=== PATIENT | female | born 1945 | race Caucasian/White ===

== ENCOUNTER 2017-08-22 11:34 | Inpatient (IN) ==
[~2017-08-22 11:34] MED LIST: *HR* EPINEPHrine 1 MG/10 ML SYRINGE IVP ONE; *HR* Etomidate 20 MG/10 ML AMPUL IVP ONE; *HR* Rocuronium Bromide 100 MG/10 ML VIAL IVC ONE
[2017-08-22] MEDS ORDERED: 0.9 % Sodium Chloride 2,000 ML ONE (11:41)
[2017-08-22] MEDS ORDERED: Acetaminophen 650 MG RECTAL SUPP RC ONE (11:47)
[2017-08-22] MEDS ORDERED: 0.9 % Sodium Chloride 1,000 ML IVC ONE ×3 (11:47→12:19)
[2017-08-22 11:51] LABS: ABG Base Excess 1 mEq/L (-2 to 3); ABG HCO3 25 mEq/L (21-27); ABG Oxygen Saturation 81 % (95-98); ABG PCO2 37 mmHg (35-45); ABG PH 7.44 pH Units (7.32-7.45); ABG PO2 43 mmHg (85-104); ABG TCO2 26 mEq/L (20-26); Blood Gas FiO2 8.5 (1-15=lpm or21-100=%)
[2017-08-22] MEDS ORDERED: Vancomycin 1,000 MG in D5% in Water 250 ML IVPB ONE ×2 (11:51→12:14)
[2017-08-22 12:03] LABS: Basophils % 0.1 %; Hematocrit 42.5 % (35.3-44.9); Hemoglobin 13.8 g/dL (11.5-15.4); Immature Granulocytes % 0.3 % (0-4); Lymphocytes # 0.4 K/mcL (0.6-4.6); Lymphocytes % 4.5 %; Mean Corpuscular HGB Conc 32.5 g/dL (31.6-35.5); Mean Corpuscular Hemoglobin 29.3 pg (28.0-33.3); Mean Corpuscular Volume 90.2 fL (83.0-100.0); Mean Platelet Volume 10.6 fL (9.4-12.4); Monocytes # 0.1 K/mcL (0.0-1.3); Monocytes % 0.6 %; Neutrophils # 8.7 K/mcL (1.6-8.9); Platelet Count 162 K/mcL (140-400); Red Blood Count 4.71 M/mcL (3.82-4.97); Red Cell Distribution Width 14.8 % (11.5-14.5); Segmented Neutrophils % 94.5 %
[2017-08-22] MEDS ORDERED: Hydrocortisone Sodium Succ 100 MG/2 ML VIAL IVP ONE (12:03)
[2017-08-22 12:09] LABS: INR 1.5; Prothrombin Time 16.5 Seconds (9.4-12.1)
[2017-08-22 12:11] LABS: Activated Partial Thrombo Time 33.7 Seconds (26.0-36.0)
[2017-08-22] MEDS ORDERED: Dexmedetomidine HCl 400 MCG/100 ML MLS IVC ONE (12:16)
[2017-08-22] MEDS ORDERED: *HR* Rocuronium Bromide 50 MG/5 ML VIAL IVP ONE (12:21)
[2017-08-22] MEDS ORDERED: *HR* Etomidate 20 MG/10 ML AMPUL IVP ONE (12:21)
[2017-08-22 12:27] LABS: Bilirubin,Urine Moderate (Negative); Blood,Urine Large (Negative); Clarity,Urine Turbid (Clear); Glucose,Urine (UA) Normal (Normal); Ketones,Urine Trace mg/dL (Negative); Leukocyte Esterase,Urine Large (Negative); Nitrite,Urine Positive (Negative); Protein,Urine 100 mg/dL (Neg-Trace); Specific Gravity,Urine 1.024 (1.010-1.025); Urobilinogen,Urine Normal (Normal)
[2017-08-22 12:29] LABS: Bacteria,Urine Many per hpf (None-Few); Squamous Epithelial Cell,Urine Many per lpf (None-Few); WBC,Urine TNTC per hpf (0-3)
[2017-08-22 12:30] LABS: Alanine Aminotransferase 21 Units/L (0-55); Albumin 2.8 g/dL (3.5-5.0); Albumin/Globulin Ratio 0.6 (1.1-2.2); Alkaline Phosphatase 163 Units/L (38-126); Aspartate Amino Transferase 43 Units/L (5-34); BUN/Creatinine Ratio 19 (6-26); Bilirubin,Direct 1.3 mg/dL (0.0-0.5); Bilirubin,Indirect 0.6 mg/dL (0.0-1.2); Bilirubin,Total 1.9 mg/dL (0.2-1.2); Blood Urea Nitrogen 44 mg/dL (7-20); Calcium 8.8 mg/dL (8.6-10.8); Carbon Dioxide 23 mEq/L (19-29); Chloride 105 mEq/L (98-109); Creatine Kinase 539 Units/L (29-168); Globulin 4.4 g/dL (2.4-3.5); Glucose 211 mg/dL (70-99); Osmolality,Calculated 307 (280-300); Potassium 4.8 mEq/L (3.5-4.5); Sodium 140 mEq/L (136-145); Total Protein 7.2 g/dL (6.0-8.3); eGFR For African Americans 26 (> 60); eGFR For Non-African Americans 21 (> 60)
[2017-08-22 12:31] LABS: Ethanol < 10 mg/dL (0-10)
[2017-08-22 12:34] LABS: Amphetamine Screen,Urine Negative ng/mL (Cutoff=1000); Barbiturate Screen,Urine Negative ng/mL (Cutoff=200); Benzodiazepines Screen,Urine Negative ng/mL (Cutoff=200); Cannabinoid Screen,Urine Negative ng/mL (Cutoff = 50); Cocaine Screen,Urine Negative ng/mL (Cutoff= 300); Opiate Screen,Urine Positive ng/mL (Cutoff=300); Phencyclidine Screen,Urine Negative ng/mL (Cutoff=25)
[2017-08-22 12:38] LABS: Color,Urine Dark Yellow (Yellow)
[2017-08-22] MEDS: Dexmedetomidine HCl 400 MCG/100 ML MLS IVC SCH (12:38)
[2017-08-22] MEDS ORDERED: *HR* FentaNYL (PF) 100 MCG/2 ML VIAL IVP ONE ×2 (12:45→14:15)
[2017-08-22 12:47] LABS: RBC,Urine 30-50 per hpf (0-3)
[2017-08-22] MEDS ORDERED: *HR* FentaNYL (PF) 100 MCG/2 ML VIAL ONE (14:17)
[2017-08-22] MEDS: FentaNYL (PF) 1,000 MCG in 0.9 % Sodium Chloride 80 ML IVC SCH (14:38)
--- NOTE | 2017-08-22 14:38 | Emergency Department Note ---
Disposition Clinical Impression: Renal calculi, Acute kidney injury Altered mental status Qualifiers: Altered mental status type: disorientation Qualified Code(s): R41.0 - Disorientation, unspecified Urinary tract infection Qualifiers: Urinary tract infection type: catheter-associated UTI Indwelling urinary catheter type: unspecified Encounter type: initial encounter Qualified Code(s): T83.511A - Infection and inflammatory reaction due to indwelling urethral catheter, initial encounter; N39.0 - Urinary tract infection, site not specified ; N39.0 - Urinary tract infection, site not specified Sepsis Qualifiers: Sepsis type: sepsis due to unspecified organism Qualified Code(s): A41.9 - Sepsis, unspecified organism Fever Qualifiers: Fever type: due to other condition Qualified Code(s): R50.81 - Fever presenting with conditions classified elsewhere Disposition: Admitted As Inpatient Condition: Critical Referrals: Nik Mcmillan MD [Primary Care Provider] - Time of Disposition: 14:58 Altered Mental Status HPI - General Chief Complaint: ED Altered Mental Status Stated Complaint: unresponsive Source: EMS Mode of arrival: EMS Limitations: altered mental status, physical limitation Nursing Notes Reviewed: Yes Vital Signs Reviewed: Yes - History of Present Illness HPI Narrative: Patient presents by EMS for evaluation of altered mentation and fever. No other medical history provided prior to arrival. MD complaint: altered mental status Onset (ago): day(s) Timing confirmed by: spouse, family member Context: history of similar presentation Associated symptoms: Reports: fever - Related Data Home Medications Medication Instructions Recorded Confirmed Amitriptyline [Elavil] 25 mg PO HS 08/22/17 08/22/17 Aspirin [Lo-Dose Aspirin EC] 81 mg PO DAILY 08/22/17 08/22/17 Baclofen [Lioresal] 10 mg PO TID 08/22/17 08/22/17 FLUoxetine HCl [PROzac] 10 mg PO DAILY 08/22/17 08/22/17 Gabapentin [Neurontin] 600 mg PO TID 08/22/17 08/22/17 Levothyroxine Sodium [Levoxyl] 88 mcg PO DAILY 08/22/17 08/22/17 Oxycodone HCl/Acetaminophen 1 tab PO QID 08/22/17 08/22/17 [Percocet 10-325 mg Tablet] Simvastatin [Zocor] 40 mg PO HS 08/22/17 08/22/17 Allergies Allergy/AdvReac Type Severity Reaction Status Date / Time Sulfa (Sulfonamide Allergy See Verified 08/22/17 11:47 Antibiotics) Comments All systems ED: reviewed and negative except as stated. (Per the family) Review of Systems: As Per HPI Constitutional: Reports: fever, chills, weakness Past Medical History - Past Medical History Attestation: Yes The following information was validated with the patient. 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 Absent: wheezes, stridor - Cardiovascular Cardiovascular exam: Present: normal rhythm, tachycardia, normal heart sounds - Abdominal Exam Abdominal exam: Present: distention - Extremities Exam Extremities exam: Present: normal inspection, normal capillary refill - Skin Skin exam: Present: warm Course Course Narrative: Patient seen and examined the time of arrival. See history of present illness. 71-year-old female presents from home for evaluation of altered mentation. is with her after initial presentation by EMS. He discloses that yesterday she was having fever and chills. Denied any other symptoms. Denied trauma or injury prior to the events. Currently denied chest pain shortness of breath fevers chills nausea vomiting or diarrhea headache or vision chamber to yesterday's events. 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 She does have an ulcer on her backside which was not assessed. Vital signs on presentation showed borderline hypotension and tachycardia. Neurologic evaluation shows a obese female in some moderate distress. She does not follow verbal commands she will not open her eyes on her own. She does respond to painful stimuli. Pupils appear to be equal round reactive to light extraocular muscles are intact based on rotation of the neck. Mucous membranes are significantly dry at this time. Heart is tachycardic but otherwise regular. Patient is concerning for intracranial pathology as well as sepsis. Patient started on IV fluids to IV access areas were obtained. 18-gauge is the bilateral ACs were established. Lungs are otherwise clear heart was regular tachycardic. Patient had fluid infused at this time and CT imaging were ordered. Patient will also have antibiotic regimen started including vancomycin and Rocephin secondary to remote history of possible meningitis. Symptoms are unknown etiology at this time except the patient does catheterize daily and may be showing signs of altered mentation secondary to urinary tract infection. She does not show any acute guarding or grimace on palpation of the abdomen. examination appears to be stable with no signs of abrasion or irritation. Family is with this at the bedside and they agree that she does not want cardiac resuscitation but if it mandated intubation for symptom control to help with her mentation as her illness is treated there are comfortable with that at this time. Bedside blood gas was completed showing hypoxia. Determination for intubation was made at that point. The patient was completed by myself at the bedside using etomidate and vecuronium without any difficulty. An attempt was made with a 7.5 ET tube without any complication. Confirmatory chest x-ray was ordered and completed. 2 EKGs were completed showing sinus tachycardia initially with almost complete resolution of tachycardia after single dose of Cardizem. Disposition most likely be admission to the ICU. See detailed mentation physical exam and the procedure chart. Stress dose steroids as well as antibiotic regimen ordered immediately. - Reevaluation(s) Reevaluation #1: Patient found to grossly have infected urine. She says elevated CPK and kidney dysfunction at this time. Chest x-ray is unremarkable CT of head is unremarkable. Consultation placed to the brass pourer Dr. richardson. We reviewed the presentation symptoms medical history. CT imaging the abdomen is still pending. Fluids given at this time Precedex and Cardizem also ordered. Fentanyl drip to be started as requested. He will come evaluate the patient has emergency room and taken to the ICU. Patient is what appears to be focal septic presentation and etiology concerning issue of intra-abdominal pathology. Patient is not requiring pressure medication at this time and is fluid responsive. We will continue to monitor his treatment course is completed. Time: 12:25 Reevaluation #2: Patient found to have a large obstructing stone at the right UVJ. This most likely is an obstructed infected stone at this time based on the symptoms and history. Patient is having stabilization of her vital signs at this repeat evaluation. Heart rate is responsive to Cardizem. 3 L of fluid and given maintenance fluids over this time. Her blood pressure is continuing to be slightly labile with the Precedex at this point. Titration is to be changed and adjusted this time. Patient will go to the ICU in stable medical condition. Currently she is very ill with what appears to be urosepsis secondary to obstructed impacted stone. Patient has potential for decompensation secondary to her critical medical illness. ICU attending was contacted again as well as a consultation with urologist secondary to the stone. Dr. Simons and I reviewed the presentation and symptoms and they will intervene as needed. Patient to go to the ICU at this time. Time: 14:54 Vital Signs Temperature 0 F L 08/22/17 11:36 Pulse Rate 155 08/22/17 11:36 Respiratory Rate 19 08/22/17 11:36 Blood Pressure 107/64 08/22/17 11:36 O2 Sat by Pulse Oximetry 93 08/22/17 11:36 Temperature 0 F L 08/22/17 11:36 Pulse Rate 151 08/22/17 14:11 Respiratory Rate 2 08/22/17 14:11 Blood Pressure 129/74 08/22/17 14:11 O2 Sat by Pulse Oximetry 99 08/22/17 14:11 Oxygen Delivery Oxygen Delivery Ventilator Procedures - Intubation Time out performed: No sedative: Etomidate Mg Given: 20 paralytic: Rocuronium Mg Given: 70 Laryngoscope: Susi ET Tube Size: Oral ET Tube Uncuffed: No Tube Secured Depth (cm): 20 Tube Secured Location: lips Tube Placement Confirmation: visualized tube passing through cords, equal breath sounds bilaterally, no breath sounds over epigastrium, confirmation by capnometry Patient Tolerated Procedure: well Intubation Complications: none Altered Mental Status - MDM Narrative Medical decision making narrative: Altered mentation, sepsis, urinary tract infection, impacted stone acute kidney insufficiency - Medical Records Medical records reviewed: Yes I reviewed the patient's medical records. - Lab Data Lab results reviewed: Yes I reviewed the patient's lab results. Result diagrams: 08/22/17 11:50 08/22/17 11:50 Lab Results 08/22/17 08/22/17 08/22/17 Range/Units 11:38 11:48 11:50 WBC 9.3 (4.3-11.1) K/mcL RBC 4.71 (3.82-4.97) M/mcL Hgb 13.8 (11.5-15.4) g/dL Hct 42.5 (35.3-44.9) % MCV 90.2 (83.0-100.0) fL MCH 29.3 (28.0-33.3) pg MCHC 32.5 (31.6-35.5) g/dL RDW 14.8 H (11.5-14.5) % Plt Count 162 (140-400) K/mcL MPV 10.6 (9.4-12.4) fL Immature Gran % 0.3 (0-4) % Seg Neutrophils % 94.5 % Lymphocytes % 4.5 % Monocytes % 0.6 % Eosinophils % 0.0 % Basophils % 0.1 % Neutrophils # 8.7 (1.6-8.9) K/mcL Lymphocytes # 0.4 L (0.6-4.6) K/mcL Monocytes # 0.1 (0.0-1.3) K/mcL Eosinophils # 0.0 (0.0-0.6) K/mcL Basophils # 0.0 (0.0-0.2) K/mcL PT (9.4-12.1) Seconds INR APTT (26.0-36.0) Seconds ABG pH 7.44 (7.32-7.45) pH Units ABG pCO2 37 (35-45) mmHg ABG pO2 43 L* (85-104) mmHg ABG HCO3 25 (21-27) mEq/L ABG Total CO2 26 (20-26) mEq/L ABG O2 Saturation 81 L (95-98) % ABG Base Excess 1 (-2 to 3) mEq/L O2 Delivery Device Cannula Inspired O2 8.5 (1-15=lpm [id number]=%) Sodium (136-145) mEq/L Potassium (3.5-4.5) mEq/L Chloride (98-109) mEq/L Carbon Dioxide (19-29) mEq/L BUN (7-20) mg/dL Creatinine (0.57-1.11) mg/dL Est GFR ( Amer) (> 60) Est GFR (Non-Af Amer) (> 60) BUN/Creatinine Ratio (6-26) Glucose (70-99) mg/dL POC Glucose 205 H (58-89) Calculated Osmolality (280-300) Lactic Acid (0.5-2.2) mmol/L Calcium (8.6-10.8) mg/dL Total Bilirubin (0.2-1.2) mg/dL Direct Bilirubin (0.0-0.5) mg/dL Indirect Bilirubin (0.0-1.2) mg/dL AST (5-34) Units/L ALT (0-55) Units/L Alkaline Phosphatase (38-126) Units/L Creatine Kinase (29-168) Units/L Troponin I (0-0.03) ng/mL Serum Total Protein (6.0-8.3) g/dL Albumin (3.5-5.0) g/dL Globulin (2.4-3.5) g/dL Albumin/Globulin Ratio (1.1-2.2) Ur Specimen Adequacy Urine Color (Yellow) Urine Clarity (Clear) Urine pH (5.0-8.0) pH Units Ur Specific Rufus (1.010-1.025) Urine Protein (Neg-Trace) mg/dL Urine Glucose (UA) (Normal) mg/dL Urine Ketones (Negative) mg/dL Urine Blood (Negative) Urine Nitrite (Negative) Urine Bilirubin (Negative) Urine Urobilinogen (Normal) mg/dL Ur Leukocyte Esterase (Negative) Urine Microscopic RBC (0-3) per hpf Urine Microscopic WBC (0-3) per hpf Ur Squamous Epith Cells (None-Few) per lpf Urine Bacteria (None-Few) per hpf Ur Culture Indicated? (NO) Urine Opiates Screen (Ijnnmn=268) ng/mL Ur Barbiturates Screen (Vjqtuo=662) ng/mL Ur Phencyclidine Scrn (Cutoff=25) ng/mL Ur Amphetamines Screen (Hbtgir=9839) ng/mL U Benzodiazepines Scrn (Wvhucn=516) ng/mL Urine Cocaine Screen (Cutoff= 300) ng/mL U Marijuana (THC) Screen (Cutoff = 50) ng/mL Ethyl Alcohol (0-10) mg/dL 08/22/17 08/22/17 08/22/17 Range/Units 11:50 11:50 11:50 WBC (4.3-11.1) K/mcL RBC (3.82-4.97) M/mcL Hgb (11.5-15.4) g/dL Hct (35.3-44.9) % MCV (83.0-100.0) fL MCH (28.0-33.3) pg MCHC (31.6-35.5) g/dL RDW (11.5-14.5) % Plt Count (140-400) K/mcL MPV (9.4-12.4) fL Immature Gran % (0-4) % Seg Neutrophils % % Lymphocytes % % Monocytes % % Eosinophils % % Basophils % % Neutrophils # (1.6-8.9) K/mcL Lymphocytes # (0.6-4.6) K/mcL Monocytes # (0.0-1.3) K/mcL Eosinophils # (0.0-0.6) K/mcL Basophils # (0.0-0.2) K/mcL PT 16.5 H (9.4-12.1) Seconds INR 1.5 APTT 33.7 (26.0-36.0) Seconds ABG pH (7.32-7.45) pH Units ABG pCO2 (35-45) mmHg ABG pO2 (85-104) mmHg ABG HCO3 (21-27) mEq/L ABG Total CO2 (20-26) mEq/L ABG O2 Saturation (95-98) % ABG Base Excess (-2 to 3) mEq/L O2 Delivery Device Inspired O2 (1-15=lpm [id number]=%) Sodium 140 (136-145) mEq/L Potassium 4.8 H (3.5-4.5) mEq/L Chloride 105 (98-109) mEq/L Carbon Dioxide 23 (19-29) mEq/L BUN 44 H (7-20) mg/dL Creatinine 2.27 H (0.57-1.11) mg/dL Est GFR ( Amer) 26 L (> 60) Est GFR (Non-Af Amer) 21 L (> 60) BUN/Creatinine Ratio 19 (6-26) Glucose 211 H (70-99) mg/dL POC Glucose (58-89) Calculated Osmolality 307 H (280-300) Lactic Acid (0.5-2.2) mmol/L Calcium 8.8 (8.6-10.8) mg/dL Total Bilirubin 1.9 H (0.2-1.2) mg/dL Direct Bilirubin 1.3 H (0.0-0.5) mg/dL Indirect Bilirubin 0.6 (0.0-1.2) mg/dL AST 43 H (5-34) Units/L ALT 21 (0-55) Units/L Alkaline Phosphatase 163 H (38-126) Units/L Creatine Kinase 539 H (29-168) Units/L Troponin I 0.03 (0-0.03) ng/mL Serum Total Protein 7.2 (6.0-8.3) g/dL Albumin 2.8 L (3.5-5.0) g/dL Globulin 4.4 H (2.4-3.5) g/dL Albumin/Globulin Ratio 0.6 L (1.1-2.2) Ur Specimen Adequacy Urine Color (Yellow) Urine Clarity (Clear) Urine pH (5.0-8.0) pH Units Ur Specific Rufus (1.010-1.025) Urine Protein (Neg-Trace) mg/dL Urine Glucose (UA) (Normal) mg/dL Urine Ketones (Negative) mg/dL Urine Blood (Negative) Urine Nitrite (Negative) Urine Bilirubin (Negative) Urine Urobilinogen (Normal) mg/dL Ur Leukocyte Esterase (Negative) Urine Microscopic RBC (0-3) per hpf Urine Microscopic WBC (0-3) per hpf Ur Squamous Epith Cells (None-Few) per lpf Urine Bacteria (None-Few) per hpf Ur Culture Indicated? (NO) Urine Opiates Screen (Bislpr=947) ng/mL Ur Barbiturates Screen (Ugabyr=188) ng/mL Ur Phencyclidine Scrn (Cutoff=25) ng/mL Ur Amphetamines Screen (Iorvcr=4861) ng/mL U Benzodiazepines Scrn (Qbybst=039) ng/mL Urine Cocaine Screen (Cutoff= 300) ng/mL U Marijuana (THC) Screen (Cutoff = 50) ng/mL Ethyl Alcohol < 10 (0-10) mg/dL 08/22/17 08/22/17 08/22/17 Range/Units 11:50 12:13 12:13 WBC (4.3-11.1) K/mcL RBC (3.82-4.97) M/mcL Hgb (11.5-15.4) g/dL Hct (35.3-44.9) % MCV (83.0-100.0) fL MCH (28.0-33.3) pg MCHC (31.6-35.5) g/dL RDW (11.5-14.5) % Plt Count (140-400) K/mcL MPV (9.4-12.4) fL Immature Gran % (0-4) % Seg Neutrophils % % Lymphocytes % % Monocytes % % Eosinophils % % Basophils % % Neutrophils # (1.6-8.9) K/mcL Lymphocytes # (0.6-4.6) K/mcL Monocytes # (0.0-1.3) K/mcL Eosinophils # (0.0-0.6) K/mcL Basophils # (0.0-0.2) K/mcL PT (9.4-12.1) Seconds INR APTT (26.0-36.0) Seconds ABG pH (7.32-7.45) pH Units ABG pCO2 (35-45) mmHg ABG pO2 (85-104) mmHg ABG HCO3 (21-27) mEq/L ABG Total CO2 (20-26) mEq/L ABG O2 Saturation (95-98) % ABG Base Excess (-2 to 3) mEq/L O2 Delivery Device Inspired O2 (1-15=lpm [id number]=%) Sodium (136-145) mEq/L Potassium (3.5-4.5) mEq/L Chloride (98-109) mEq/L Carbon Dioxide (19-29) mEq/L BUN (7-20) mg/dL Creatinine (0.57-1.11) mg/dL Est GFR ( Amer) (> 60) Est GFR (Non-Af Amer) (> 60) BUN/Creatinine Ratio (6-26) Glucose (70-99) mg/dL POC Glucose (58-89) Calculated Osmolality (280-300) Lactic Acid 3.0 H (0.5-2.2) mmol/L Calcium (8.6-10.8) mg/dL Total Bilirubin (0.2-1.2) mg/dL Direct Bilirubin (0.0-0.5) mg/dL Indirect Bilirubin (0.0-1.2) mg/dL AST (5-34) Units/L ALT (0-55) Units/L Alkaline Phosphatase (38-126) Units/L Creatine Kinase (29-168) Units/L Troponin I (0-0.03) ng/mL Serum Total Protein (6.0-8.3) g/dL Albumin (3.5-5.0) g/dL Globulin (2.4-3.5) g/dL Albumin/Globulin Ratio (1.1-2.2) Ur Specimen Adequacy See below A Urine Color Dark Yellow (Yellow) Urine Clarity Turbid A (Clear) Urine pH 5.0 (5.0-8.0) pH Units Ur Specific Rufus 1.024 (1.010-1.025) Urine Protein 100 H (Neg-Trace) mg/dL Urine Glucose (UA) Normal (Normal) mg/dL Urine Ketones Trace H (Negative) mg/dL Urine Blood Large H (Negative) Urine Nitrite Positive A (Negative) Urine Bilirubin Moderate H (Negative) Urine Urobilinogen Normal (Normal) mg/dL Ur Leukocyte Esterase Large H (Negative) Urine Microscopic RBC 30-50 H (0-3) per hpf Urine Microscopic WBC TNTC H (0-3) per hpf Ur Squamous Epith Cells Many H (None-Few) per lpf Urine Bacteria Many H (None-Few) per hpf Ur Culture Indicated? YES A (NO) Urine Opiates Screen Positive H (Olnwsi=776) ng/mL Ur Barbiturates Screen Negative (Tovkrg=592) ng/mL Ur Phencyclidine Scrn Negative (Cutoff=25) ng/mL Ur Amphetamines Screen Negative (Rdptxz=6445) ng/mL U Benzodiazepines Scrn Negative (Gazqmd=055) ng/mL Urine Cocaine Screen Negative (Cutoff= 300) ng/mL U Marijuana (THC) Screen Negative (Cutoff = 50) ng/mL Ethyl Alcohol (0-10) mg/dL 08/22/17 Range/Units 14:20 WBC (4.3-11.1) K/mcL RBC (3.82-4.97) M/mcL Hgb (11.5-15.4) g/dL Hct (35.3-44.9) % MCV (83.0-100.0) fL MCH (28.0-33.3) pg MCHC (31.6-35.5) g/dL RDW (11.5-14.5) % Plt Count (140-400) K/mcL MPV (9.4-12.4) fL Immature Gran % (0-4) % Seg Neutrophils % % Lymphocytes % % Monocytes % % Eosinophils % % Basophils % % Neutrophils # (1.6-8.9) K/mcL Lymphocytes # (0.6-4.6) K/mcL Monocytes # (0.0-1.3) K/mcL Eosinophils # (0.0-0.6) K/mcL Basophils # (0.0-0.2) K/mcL PT (9.4-12.1) Seconds INR APTT (26.0-36.0) Seconds ABG pH (7.32-7.45) pH Units ABG pCO2 (35-45) mmHg ABG pO2 (85-104) mmHg ABG HCO3 (21-27) mEq/L ABG Total CO2 (20-26) mEq/L ABG O2 Saturation (95-98) % ABG Base Excess (-2 to 3) mEq/L O2 Delivery Device Inspired O2 (1-15=lpm [id number]=%) Sodium (136-145) mEq/L Potassium (3.5-4.5) mEq/L Chloride (98-109) mEq/L Carbon Dioxide (19-29) mEq/L BUN (7-20) mg/dL Creatinine (0.57-1.11) mg/dL Est GFR ( Amer) (> 60) Est GFR (Non-Af Amer) (> 60) BUN/Creatinine Ratio (6-26) Glucose (70-99) mg/dL POC Glucose (58-89) Calculated Osmolality (280-300) Lactic Acid 2.2 (0.5-2.2) mmol/L Calcium (8.6-10.8) mg/dL Total Bilirubin (0.2-1.2) mg/dL Direct Bilirubin (0.0-0.5) mg/dL Indirect Bilirubin (0.0-1.2) mg/dL AST (5-34) Units/L ALT (0-55) Units/L Alkaline Phosphatase (38-126) Units/L Creatine Kinase (29-168) Units/L Troponin I (0-0.03) ng/mL Serum Total Protein (6.0-8.3) g/dL Albumin (3.5-5.0) g/dL Globulin (2.4-3.5) g/dL Albumin/Globulin Ratio (1.1-2.2) Ur Specimen Adequacy Urine Color (Yellow) Urine Clarity (Clear) Urine pH (5.0-8.0) pH Units Ur Specific Rufus (1.010-1.025) Urine Protein (Neg-Trace) mg/dL Urine Glucose (UA) (Normal) mg/dL Urine Ketones (Negative) mg/dL Urine Blood (Negative) Urine Nitrite (Negative) Urine Bilirubin (Negative) Urine Urobilinogen (Normal) mg/dL Ur Leukocyte Esterase (Negative) Urine Microscopic RBC (0-3) per hpf Urine Microscopic WBC (0-3) per hpf Ur Squamous Epith Cells (None-Few) per lpf Urine Bacteria (None-Few) per hpf Ur Culture Indicated? (NO) Urine Opiates Screen (Grepcf=829) ng/mL Ur Barbiturates Screen (Pmavus=680) ng/mL Ur Phencyclidine Scrn (Cutoff=25) ng/mL Ur Amphetamines Screen (Bnhaqr=1452) ng/mL U Benzodiazepines Scrn (Nrqebk=850) ng/mL Urine Cocaine Screen (Cutoff= 300) ng/mL U Marijuana (THC) Screen (Cutoff = 50) ng/mL Ethyl Alcohol (0-10) mg/dL - Radiology Data Radiology results reviewed: Yes I reviewed the patient's radiology results. CT of the head is otherwise unremarkable. Chest x-ray stable. CT abdomen shows a large obstructing stone in the right ureter with pyelonephritis and hydroureter noted. - EKG Data EKG attestation: Yes I reviewed and interpreted this EKG. EKG results narrative: Repeat EKG completed showing sinus tachycardia with a heart rate of 105 with normal intervals EKG shows normal: sinus rhythm, axis, intervals, QRS complexes, ST-T waves Rate: tachycardia Rhythm: NSR Adah/QRS: normal When compared to previous EKG there are: other TPA Checklist - LKW: 3-4.5 hrs Add. Warnings/Precautions Patient/family understanding: The patient/family members have been counseled and understood the risk, benefit , and alternatives of treatment. Critical Care Time Critical Care Time: Yes Total Critical Care Time: 60 Attestation: Critical care performed: Time is exclusive of separately billable procedures. Time includes: direct patient care, patient reassessment, coordination of patient care, interpretation of data (laboratory data, radiology data, and respiratory data), review of patient's medical records, medical consultation and documentation of patient care. Procedures included in critical care time: Procedures excluded from critical care time:
--- NOTE | 2017-08-22 15:30 | Pulmonology History & Physical ---
<Itz Valenzuela - Last Filed: 08/22/17 17:10> Date of Encounter: 08/22/17 Time of Encounter: 14:47 Assessment and Plan (1) Septic shock Current visit: Yes Status: Acute Patient was intubated in the ED due to progressively worsening AMS. On admission patient HR 155 RR 19 BP 107/64, BP declined to 87/57 and was then intubated. On admission patient HR 151 BP 85/54. 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 At home, daily straight caths AMS most likely due to obstructive polynephritis vs decubitis ulcer infection complication vs less likely bacteremia - 1.8 cm obstructing calculus at the right ureteropelvic junction seen on CT abd /pelvis. CT head - unremarkable. CXR - stable. - EKG repeat - Abx: Day 1 Ceftriaxone + Day 1 vanc - Blood/Urine Cx pending - 4 L IVF given - Diltiazem for HR >100 - sedation: Precedex + fentanyl - Central line consent and placement - levophed ordered - urology following - decubitis ulcer stage 4 tunneled, wound care consulted (2) Obstructive pyelonephritis Current visit: Yes Status: Acute CT abd/pelvis - 1.8 cm x 0.7 cm x 0.5 cm obstructing calculus at the right ureteropelvic junction, resulting in mild right hydronephrosis. 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 Patients habitus is a contributing factor (5) Obesity Current visit: Yes Status: Acute outpatient followup Qualifiers: Qualified Code(s): E66.9 - Obesity, unspecified (6) DVT prophylaxis Current visit: Yes Status: Acute subq heparin History of Present Illness Chief complaint: AMS HPI: Ms. Swan is a 71 year old female who presented to the ED today altered, and patient was intubated prior to transfer to ICU. Patient was sedated, and history was provided by . Patient yesterday woke up groggy, confused, tired, vomiting yellowish/green and was not able to take her morning medicines. patient mental state slightly improved through the day. At the time the took her temperature and was not noted to have a fever, but patient felt warm to touch. Patient started to develop joint pain diffusely. 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 Family does not report having to be on precautions at the time and/or prophylactically treated for meningitis. Patient at that time had very similar symptoms. As well family reports patient had a TIA 4-5 years ago, and has frequent states of confusion. Patient also has chronic loss of appetite that has improved for the last week, last bowel movement was 3 days ago and is consistently once a week. Family reports patient has chronic rapid shallow breathing. Family reports patient has had cloudy urine for the last week, and consistently temporarily self caths. She also has a history of kidney stones 3 times previously, passed naturally 2x, and 1x removed. about once a month she get UTI which she is consistently treated with Abx by her PCP Dr. Mcmillan. On chart review patient has history of c. diff. Past Med Surg Social Fam HX - Past Medical History Medical history: hyperlipidemia, other Psychiatric history: no psych history - Social History Smoking Status: Unknown if ever smoked Smokeless Tobacco Status: No Alcohol use: none Drug use: unknown Medications and Allergies Amitriptyline [Elavil] 25 mg PO HS 08/22/17 [History] Aspirin [Lo-Dose Aspirin EC] 81 mg PO DAILY 08/22/17 [History] Baclofen [Lioresal] 10 mg PO TID 08/22/17 [History] FLUoxetine HCl [PROzac] 10 mg PO DAILY 08/22/17 [History] Gabapentin [Neurontin] 600 mg PO TID 08/22/17 [History] Levothyroxine Sodium [Levoxyl] 88 mcg PO DAILY 08/22/17 [History] Oxycodone HCl/Acetaminophen [Percocet 10-325 mg Tablet] 1 tab PO QID 08/22/17 [ History] Simvastatin [Zocor] 40 mg PO HS 08/22/17 [History] 3 Allergy/AdvReac Type Severity Reaction Status Date / Time Sulfa (Sulfonamide Allergy See Verified 08/22/17 11:47 Antibiotics) Comments ROS unobtainable: due to endotracheal tube All Systems: A 10-system review of systems was performed and is negative for pertinent findings except as documented above in the HPI. Physical Examination General appearance: asleep Eyes: other (right pupil does not constrict to light) Effort: other (mechanically ventilated) Auscultation: bilateral: diminished breath sounds Cardiovascular: other (tachycardic) Gastrointestinal: hypoactive bowel sounds Extremities: pulses normal, edema (bilateral lower extremities 2/4) unable to assess due to mental status Results - Laboratory Findings CBC and BMP: 08/22/17 11:50 08/22/17 11:50 ABG ABG pH 7.44 pH Units (7.32-7.45) 08/22/17 11:48 ABG pCO2 37 mmHg (35-45) 08/22/17 11:48 ABG pO2 43 mmHg (85-104) L* 08/22/17 11:48 ABG O2 Saturation 81 % (95-98) L 08/22/17 11:48 PT/INR, D-dimer PT 16.5 Seconds (9.4-12.1) H 08/22/17 11:50 Abnormal lab findings: Abnormal lab results RDW 14.8 % (11.5-14.5) H 08/22/17 11:50 Lymphocytes # 0.4 K/mcL (0.6-4.6) L 08/22/17 11:50 PT 16.5 Seconds (9.4-12.1) H 08/22/17 11:50 ABG pO2 43 mmHg (85-104) L* 08/22/17 11:48 ABG O2 Saturation 81 % (95-98) L 08/22/17 11:48 Potassium 4.8 mEq/L (3.5-4.5) H 08/22/17 11:50 BUN 44 mg/dL (7-20) H 08/22/17 11:50 Creatinine 2.27 mg/dL (0.57-1.11) H 08/22/17 11:50 Est GFR ( Amer) 26 (> 60) L 08/22/17 11:50 Est GFR (Non-Af Amer) 21 (> 60) L 08/22/17 11:50 Glucose 211 mg/dL (70-99) H 08/22/17 11:50 POC Glucose 205 (58-89) H 08/22/17 11:38 Calculated Osmolality 307 (280-300) H 08/22/17 11:50 Total Bilirubin 1.9 mg/dL (0.2-1.2) H 08/22/17 11:50 Direct Bilirubin 1.3 mg/dL (0.0-0.5) H 08/22/17 11:50 AST 43 Units/L (5-34) H 08/22/17 11:50 Alkaline Phosphatase 163 Units/L (38-126) H 08/22/17 11:50 Creatine Kinase 539 Units/L (29-168) H 08/22/17 11:50 Albumin 2.8 g/dL (3.5-5.0) L 08/22/17 11:50 Globulin 4.4 g/dL (2.4-3.5) H 08/22/17 11:50 Albumin/Globulin Ratio 0.6 (1.1-2.2) L 08/22/17 11:50 Ur Specimen Adequacy See below A 08/22/17 12:13 Urine Clarity Turbid (Clear) A 08/22/17 12:13 Urine Protein 100 mg/dL (Neg-Trace) H 08/22/17 12:13 Urine Ketones Trace mg/dL (Negative) H 08/22/17 12:13 Urine Blood Large (Negative) H 08/22/17 12:13 Urine Nitrite Positive (Negative) A 08/22/17 12:13 Urine Bilirubin Moderate (Negative) H 08/22/17 12:13 Ur Leukocyte Esterase Large (Negative) H 08/22/17 12:13 Urine Microscopic RBC 30-50 per hpf (0-3) H 08/22/17 12:13 Urine Microscopic WBC TNTC per hpf (0-3) H 08/22/17 12:13 Ur Squamous Epith Cells Many per lpf (None-Few) H 08/22/17 12:13 Urine Bacteria Many per hpf (None-Few) H 08/22/17 12:13 Ur Culture Indicated? YES (NO) A 08/22/17 12:13 Urine Opiates Screen Positive ng/mL ([id number]) H 08/22/17 12:13 <Zeferino Matias M - Last Filed: 08/22/17 22:23> Date of Encounter: 08/22/17 History of Present Illness HPI: Ms. Swan is a 71 year old female All Systems: A 10-system review of systems was performed and is negative for pertinent findings except as documented above in the HPI. Physical Examination Vital Signs: Vital Signs, Last 4 Hours Pulse Resp BP Pulse Ox 08/22/17 16:29 78 17 92/60 97 08/22/17 16:00 78 17 63/40 95 08/22/17 15:45 17 85/54 95 08/22/17 14:42 12 85/54 08/22/17 14:41 112 Results - Laboratory Findings CBC and BMP: 08/22/17 11:50 08/22/17 11:50 ABG ABG pH 7.23 pH Units (7.32-7.45) L D 08/22/17 15:27 ABG pCO2 54 mmHg (35-45) H 08/22/17 15:27 ABG pO2 287 mmHg (85-104) H D 08/22/17 15:27 ABG O2 Saturation 100 % (95-98) H 08/22/17 15:27 PT/INR, D-dimer PT 16.5 Seconds (9.4-12.1) H 08/22/17 11:50 Abnormal lab findings: Abnormal lab results RDW 14.8 % (11.5-14.5) H 08/22/17 11:50 Lymphocytes # 0.4 K/mcL (0.6-4.6) L 08/22/17 11:50 PT 16.5 Seconds (9.4-12.1) H 08/22/17 11:50 ABG pH 7.23 pH Units (7.32-7.45) L D 08/22/17 15:27 ABG pCO2 54 mmHg (35-45) H 08/22/17 15:27 ABG pO2 287 mmHg (85-104) H D 08/22/17 15:27 ABG O2 Saturation 100 % (95-98) H 08/22/17 15:27 ABG Base Excess -6 mEq/L (-2 to 3) L 08/22/17 15:27 Potassium 4.8 mEq/L (3.5-4.5) H 08/22/17 11:50 BUN 44 mg/dL (7-20) H 08/22/17 11:50 Creatinine 2.27 mg/dL (0.57-1.11) H 08/22/17 11:50 Est GFR ( Amer) 26 (> 60) L 08/22/17 11:50 Est GFR (Non-Af Amer) 21 (> 60) L 08/22/17 11:50 Glucose 211 mg/dL (70-99) H 08/22/17 11:50 POC Glucose 231 (58-89) H 08/22/17 15:04 Calculated Osmolality 307 (280-300) H 08/22/17 11:50 Total Bilirubin 1.9 mg/dL (0.2-1.2) H 08/22/17 11:50 Direct Bilirubin 1.3 mg/dL (0.0-0.5) H 08/22/17 11:50 AST 43 Units/L (5-34) H 08/22/17 11:50 Alkaline Phosphatase 163 Units/L (38-126) H 08/22/17 11:50 Creatine Kinase 539 Units/L (29-168) H 08/22/17 11:50 Albumin 2.8 g/dL (3.5-5.0) L 08/22/17 11:50 Globulin 4.4 g/dL (2.4-3.5) H 08/22/17 11:50 Albumin/Globulin Ratio 0.6 (1.1-2.2) L 08/22/17 11:50 Ur Specimen Adequacy See below A 08/22/17 12:13 Urine Clarity Turbid (Clear) A 08/22/17 12:13 Urine Protein 100 mg/dL (Neg-Trace) H 08/22/17 12:13 Urine Ketones Trace mg/dL (Negative) H 08/22/17 12:13 Urine Blood Large (Negative) H 08/22/17 12:13 Urine Nitrite Positive (Negative) A 08/22/17 12:13 Urine Bilirubin Moderate (Negative) H 08/22/17 12:13 Ur Leukocyte Esterase Large (Negative) H 08/22/17 12:13 Urine Microscopic RBC 30-50 per hpf (0-3) H 08/22/17 12:13 Urine Microscopic WBC TNTC per hpf (0-3) H 08/22/17 12:13 Ur Squamous Epith Cells Many per lpf (None-Few) H 08/22/17 12:13 Urine Bacteria Many per hpf (None-Few) H 08/22/17 12:13 Ur Culture Indicated? YES (NO) A 08/22/17 12:13 Urine Opiates Screen Positive ng/mL (Rsyzco=246) H 08/22/17 12:13 - Attending Attestation I examined this patient and my medical decision-making was reviewed with the Resident Physician. I agree with the documented findings, disposition and treatment plan as described except to the extent set forth below. Patient seen and examined. Labs, radiology, chart personally reviewed. Agree with resident's history and physical, assessment, plan with following comments: [employer]: Patient does not follows commands, Pulmonary: Acceptable oxygenation and ventilation. I have made necessary ventilator changes based on her abnormal ABG. Reviewed chest x-ray and ETT to place. Cardiovascular: patient with more evidence of septic shock and she had symptoms of hypoperfusion. Her skin does not feel cold to touch or evidence of hypoperfusion and no mottling. Fluid resuscitation and central line placed for vasopressors. GI: Nutrition per dietary and GI prophylaxis per routine Heme: DVT prophylaxis per routine ID: Continue antibiotics and plan to de-escalation Renal; urine out put and renal funtion reviewed. Discussed with the urologist. Endorcine: blood glucose is monitored Lines: all lines checked and no evidence of infections Skin: skin care to prevent pressure ulcers per nursing routine care discussed with the family at the bedside. Overall prognosis I believe it is poor. I spent 35 min of Critical Care time with this patient. It involved decision making of high complexity to assess, manipulate, and support vital organ system failure and/or to prevent further life threatening deterioration of the patient' s condition. The time involved in the performance of separately reportable procedures was not counted toward critical care time.
[2017-08-22 15:45] LABS: ABG Base Excess -6 mEq/L (-2 to 3); ABG HCO3 23 mEq/L (21-27); ABG Oxygen Saturation 100 % (95-98); ABG PCO2 54 mmHg (35-45); ABG PH 7.23 pH Units (7.32-7.45); ABG PO2 287 mmHg (85-104); ABG TCO2 24 mEq/L (20-26); Blood Gas Modality PRVC; Blood Gas PEEP 5 cm H2O; Blood Gas Respiration Rate 14; Blood Gas VT 500 cc
[2017-08-22] MEDS ORDERED: Naloxone 0.4 MG/ML INJ IVP PRN (16:07)
--- NOTE | 2017-08-22 16:51 | Urology - Consult Note ---
Date of Encounter: 08/22/17 Time of Encounter: 16:49 - Assessment and Plan (1) Right ureteral stone Current Visit: Yes Status: Acute Assessment and plan: 71-year-old woman with a history of a right ureteral stone and a urinary tract infection with sepsis. She is currently intubated and sedated. She's been admitted to the ICU. I recommend proceeding with a cystoscopy and right ureteral stent placement. I discussed with her the risks of the procedure which include but are not limited to bleeding, infection, injury to other structures, need for further procedures, incomplete treatment, need for nephrostomy tube, and possible failure. He is willing for her to proceed. Urology CN:HPI Consult date: 08/22/17 Reason for consult Urology: Other (Right ureteral stone, uti) Requesting physician: Kemal Baird History of present illness: 71-year-old woman was admitted to the ICU with altered mental status. In workup she had a CT scan obtained which showed evidence of an obstructing right ureteral stone. She has hydronephrosis and concern for urinary tract infection with sepsis. She has been hypotensive. The intensive care team is placing an internal jugular line. I spoke with her . We discussed the infection and the obstruction. We discussed her clinical status. Past Med Surg Social Fam HX - Past Medical History Medical history: hyperlipidemia, other Psychiatric history: no psych history - Past Surgical History Surgical History: appendectomy, cholecystectomy - Social History Smoking Status: Unknown if ever smoked Smokeless Tobacco Status: No Alcohol use: none Drug use: unknown Medications and Allergies Amitriptyline [Elavil] 25 mg PO HS 08/22/17 [History] Aspirin [Lo-Dose Aspirin EC] 81 mg PO DAILY 08/22/17 [History] Baclofen [Lioresal] 10 mg PO TID 08/22/17 [History] FLUoxetine HCl [PROzac] 10 mg PO DAILY 08/22/17 [History] Gabapentin [Neurontin] 600 mg PO TID 08/22/17 [History] Levothyroxine Sodium [Levoxyl] 88 mcg PO DAILY 08/22/17 [History] Oxycodone HCl/Acetaminophen [Percocet 10-325 mg Tablet] 1 tab PO QID 08/22/17 [ History] Simvastatin [Zocor] 40 mg PO HS 08/22/17 [History] 3 Allergy/AdvReac Type Severity Reaction Status Date / Time Sulfa (Sulfonamide Allergy See Verified 08/22/17 11:47 Antibiotics) Comments Review of Systems ROS unobtainable: due to endotracheal tube Exam Initial Vital Signs Temp Pulse Resp BP Pulse Ox 0 F L 155 19 107/64 93 08/22/17 11:36 08/22/17 11:36 08/22/17 11:36 08/22/17 11:36 08/22/17 11:36 - General physical appearance Present: other (Intubated sedated) - ENT Present: normal nares - Neck Present: trachea midline - Respiratory Present: other (On a ventilator) - Cardiovascular Cardiovascular exam IM: tachycardia - Abdomen Abdomen: Present: soft - Genitourinary Present: other (Catheter in place and clear urine) Urology Results - Labs 08/22/17 11:50 08/22/17 11:50 Abnormal lab results RDW 14.8 % (11.5-14.5) H 08/22/17 11:50 Lymphocytes # 0.4 K/mcL (0.6-4.6) L 08/22/17 11:50 PT 16.5 Seconds (9.4-12.1) H 08/22/17 11:50 ABG pH 7.23 pH Units (7.32-7.45) L D 08/22/17 15:27 ABG pCO2 54 mmHg (35-45) H 08/22/17 15:27 ABG pO2 287 mmHg (85-104) H D 08/22/17 15:27 ABG O2 Saturation 100 % (95-98) H 08/22/17 15:27 ABG Base Excess -6 mEq/L (-2 to 3) L 08/22/17 15:27 Potassium 4.8 mEq/L (3.5-4.5) H 08/22/17 11:50 BUN 44 mg/dL (7-20) H 08/22/17 11:50 Creatinine 2.27 mg/dL (0.57-1.11) H 08/22/17 11:50 Est GFR ( Amer) 26 (> 60) L 08/22/17 11:50 Est GFR (Non-Af Amer) 21 (> 60) L 08/22/17 11:50 Glucose 211 mg/dL (70-99) H 08/22/17 11:50 POC Glucose 231 (58-89) H 08/22/17 15:04 Calculated Osmolality 307 (280-300) H 08/22/17 11:50 Total Bilirubin 1.9 mg/dL (0.2-1.2) H 08/22/17 11:50 Direct Bilirubin 1.3 mg/dL (0.0-0.5) H 08/22/17 11:50 AST 43 Units/L (5-34) H 08/22/17 11:50 Alkaline Phosphatase 163 Units/L (38-126) H 08/22/17 11:50 Creatine Kinase 539 Units/L (29-168) H 08/22/17 11:50 Albumin 2.8 g/dL (3.5-5.0) L 08/22/17 11:50 Globulin 4.4 g/dL (2.4-3.5) H 08/22/17 11:50 Albumin/Globulin Ratio 0.6 (1.1-2.2) L 08/22/17 11:50 Ur Specimen Adequacy See below A 08/22/17 12:13 Urine Clarity Turbid (Clear) A 08/22/17 12:13 Urine Protein 100 mg/dL (Neg-Trace) H 08/22/17 12:13 Urine Ketones Trace mg/dL (Negative) H 08/22/17 12:13 Urine Blood Large (Negative) H 08/22/17 12:13 Urine Nitrite Positive (Negative) A 08/22/17 12:13 Urine Bilirubin Moderate (Negative) H 08/22/17 12:13 Ur Leukocyte Esterase Large (Negative) H 08/22/17 12:13 Urine Microscopic RBC 30-50 per hpf (0-3) H 08/22/17 12:13 Urine Microscopic WBC TNTC per hpf (0-3) H 08/22/17 12:13 Ur Squamous Epith Cells Many per lpf (None-Few) H 08/22/17 12:13 Urine Bacteria Many per hpf (None-Few) H 08/22/17 12:13 Ur Culture Indicated? YES (NO) A 08/22/17 12:13 Urine Opiates Screen Positive ng/mL (Jazbyi=718) H 08/22/17 12:13 All other labs normal. - Imaging CT scan - abdomen: report reviewed, image reviewed CT scan - pelvis: report reviewed, image reviewed Consult Discharge Plan - Plan Referrals: Nik Mcmillan MD [Primary Care Provider] -
[2017-08-22] MEDS ORDERED: Vancomycin 1,000 MG in D5% in Water 250 ML IVPB SCH (17:00)
--- NOTE | 2017-08-22 17:14 | Procedure Note ---
<Panda Jones - Last Filed: 08/22/17 17:14> Date of procedure: 08/22/17 Pre-op diagnosis: septic shock Post-op diagnosis: same Procedure: A time-out was completed verifying correct patient, procedure, site, positioning , and special equipment if applicable. The patient was placed in a dependent position appropriate for central line placement based on the vein to be cannulated. The patients right neck was prepped and draped in sterile fashion. 1 % Lidocaine was used to anesthetize the surrounding skin area. A triple lumen 9- Sinhala Cordis catheter was introduced into the the internal jugular using the Seldinger technique and under ultrasound guidance. The catheter was threaded smoothly over the guide wire and appropriate blood return was obtained. Each lumen of the catheter was evacuated of air and flushed with sterile saline. The catheter was then sutured in place to the skin and a sterile dressing applied. Perfusion to the extremity distal to the point of catheter insertion was checked and found to be adequate. Dr. Matias was present for the entire procedure. Anesthesia: local Surgeon: Itz Valenzuela Workforce Manager: Panda Jones Estimated blood loss (cc): 5 Pathology: none sent Condition: critical Disposition: ICU <Zeferino Matias - Last Filed: 08/22/17 22:34> Procedure: I have personally supervised residence placing central line.
[2017-08-22] MEDS ORDERED: 0.9 % Sodium Chloride 1,000 ML ONE (17:19)
--- NOTE | 2017-08-22 17:58 | Urology Procedure Note ---
Date of Encounter: 08/22/17 Time of Encounter: 17:58 Procedures:Urology - Cystoscopy Additional comments: Cystoscopy and stent placement: The patient was identified and appropriate informed consent was obtained. A timeout was performed. Under sterile conditions flex cystoscopy was performed. Upon entering the bladder the right ureteral orifice was identified. It was cannulated with a zip wire and this was brought into the kidney under x-ray guidance. An open-ended catheter was passed. An aspirate of the urine was obtained and sent for culture. A retrograde pyelogram was performed to confirm that I was above the stone. The wire was replaced. A 6 [place] by 24 centimeter double-J stent was then placed. A good curl seen in the kidney and the bladder. A Johnson catheter was reinserted. Her genitals were then washed and dried and her ICU nurse resumed care.
[2017-08-22] MEDS: Norepinephrine 4 MG in D5% in Water 250 ML IVC SCH (18:06)
[2017-08-22 18:07] LABS: ABG Base Excess -6 mEq/L (-2 to 3); ABG HCO3 19 mEq/L (21-27); ABG Oxygen Saturation 100 % (95-98); ABG PCO2 38 mmHg (35-45); ABG PH 7.31 pH Units (7.32-7.45); ABG PO2 220 mmHg (85-104); ABG TCO2 20 mEq/L (20-26); Blood Gas Modality PRVC; Blood Gas PEEP 5 cm H2O; Blood Gas Respiration Rate 16; Blood Gas VT 500 cc
[2017-08-22] MEDS: 0.9 % Sodium Chloride 1,000 ML IVC SCH (18:07)
[2017-08-22] MEDS: *HR* Heparin 5,000 UNIT/ML VIAL SQ SCH (18:09)
[2017-08-22 21:11] LABS: Acinetobacter baumannii by PCR Not Detected (Not Detect); Candida albicans by PCR Not Detected (Not Detect); Candida glabrata by PCR Not Detected (Not Detect); Candida krusei by PCR Not Detected (Not Detect); Candida parapsilosis by PCR Not Detected (Not Detect); Candida tropicalis by PCR Not Detected (Not Detect); Enterococcus by PCR Not Detected (Not Detect); Escherichia coli by PCR ***DETECTED*** (Not Detect); Klebsiella oxytoca by PCR Not Detected (Not Detect); Klebsiella pneumoniae by PCR Not Detected (Not Detect); Pseudomonas aeruginosa by PCR Not Detected (Not Detect); Serratia marcescens by PCR Not Detected (Not Detect); Staphylococcus aureus by PCR Not Detected (Not Detect); Streptococcus agalactiae(B)PCR Not Detected (Not Detect); Streptococcus by PCR Not Detected (Not Detect); Streptococcus pneumoniae PCR Not Detected (Not Detect); Streptococcus pyogenes (A) PCR Not Detected (Not Detect); blaKPC Carbapenem-Resist Gene Not Detected (Not Detect); mecA Methicillin-Resist Gene Not Detected (Not Detect); vanA/B Vancomycin-Resist Genes Not Detected (Not Detect)
[2017-08-23] MEDS ORDERED: Acetaminophen 325 MG TABLET PO PRN (00:01)
[2017-08-23] MEDS: Dexmedetomidine HCl 400 MCG/100 ML MLS IVC SCH ×2 (00:20→14:13)
[2017-08-23] MEDS: 0.9 % Sodium Chloride 1,000 ML IVC SCH ×2 (03:11→16:29)
[2017-08-23 04:25] LABS: Mean Corpuscular HGB Conc 32.5 g/dL (31.6-35.5); Mean Corpuscular Hemoglobin 30.2 pg (28.0-33.3); Mean Platelet Volume 11.2 fL (9.4-12.4); Platelet Count 104 K/mcL (140-400); Red Blood Count 3.87 M/mcL (3.82-4.97); Red Cell Distribution Width 15.1 % (11.5-14.5)
[2017-08-23 04:29] LABS: Hemoglobin 11.7 g/dL (11.5-15.4)
[2017-08-23 04:36] LABS: Albumin/Globulin Ratio 0.5 (1.1-2.2); Bilirubin,Total 1.4 mg/dL (0.2-1.2); Globulin 3.8 g/dL (2.4-3.5); Potassium 4.7 mEq/L (3.5-4.5); Total Protein 5.8 g/dL (6.0-8.3)
[2017-08-23 04:37] LABS: Calcium 7.4 mg/dL (8.6-10.8)
[2017-08-23 04:44] LABS: ABG Base Excess -5 mEq/L (-2 to 3); ABG HCO3 19 mEq/L (21-27); ABG Oxygen Saturation 98 % (95-98); ABG PCO2 30 mmHg (35-45); ABG PH 7.41 pH Units (7.32-7.45); ABG PO2 105 mmHg (85-104); ABG TCO2 20 mEq/L (20-26); Blood Gas Modality ASSIST CONTROL; Blood Gas PEEP 5 cm H2O; Blood Gas Respiration Rate 16; Blood Gas VT 500 cc
[2017-08-23 04:58] LABS: Lymphocytes # 0.3 K/mcL (0.6-4.6); Monocytes # 0.5 K/mcL (0.0-1.3); Neutrophils # 12.5 K/mcL (1.6-8.9); Platelet Estimate Decreased (Normal)
[2017-08-23] MEDS: *HR* Heparin 5,000 UNIT/ML VIAL SQ SCH ×2 (06:14→18:17)
--- NOTE | 2017-08-23 07:00 | Urology Progress Note ---
Date of Encounter: 08/23/17 Time of Encounter: 06:57 - Assessment and Plan (1) Right ureteral stone Current Visit: Yes Status: Acute Assessment and plan: 71 year old woman status post cystoscopy and right ureteral stent placement. POD #1. 1. Continue ICU level care. 2. Cultures are pending. Continue IV antibiotics. 3. Will follow along. Progress Note Narrative: 71 year old woman with sepsis, uti, and right ureteral stone. I placed a right ureteral stent yesterday. She remains intubated and sedated. Objective Initial Vital Signs Temp Pulse Resp BP Pulse Ox 0 F L 155 19 107/64 93 08/22/17 11:36 08/22/17 11:36 08/22/17 11:36 08/22/17 11:36 08/22/17 11:36 - General physical appearance Present: other (intubated, sedated) - Abdomen Present: soft - Genitourinary Urine Appearance: Present: Hematuria (Scant, jose to bloody urine) - Labs 08/23/17 04:15 08/23/17 04:15 Diabetes panel 08/23/17 Range/Units 04:15 Sodium 140 (136-145) mEq/L Potassium 4.7 H (3.5-4.5) mEq/L Chloride 113 H (98-109) mEq/L Carbon Dioxide 19 (19-29) mEq/L BUN 49 H (7-20) mg/dL Creatinine 2.00 H (0.57-1.11) mg/dL Glucose 205 H (70-99) mg/dL Calcium 7.4 L D (8.6-10.8) mg/dL AST 38 H (5-34) Units/L ALT 15 (0-55) Units/L Alkaline Phosphatase 107 (38-126) Units/L Albumin 2.0 L D (3.5-5.0) g/dL Calcium panel 08/23/17 Range/Units 04:15 Calcium 7.4 L D (8.6-10.8) mg/dL Albumin 2.0 L D (3.5-5.0) g/dL Pituitary panel 08/23/17 Range/Units 04:15 Sodium 140 (136-145) mEq/L Potassium 4.7 H (3.5-4.5) mEq/L Chloride 113 H (98-109) mEq/L Carbon Dioxide 19 (19-29) mEq/L BUN 49 H (7-20) mg/dL Creatinine 2.00 H (0.57-1.11) mg/dL Glucose 205 H (70-99) mg/dL Calcium 7.4 L D (8.6-10.8) mg/dL Adrenal panel 08/23/17 Range/Units 04:15 Sodium 140 (136-145) mEq/L Potassium 4.7 H (3.5-4.5) mEq/L Chloride 113 H (98-109) mEq/L Carbon Dioxide 19 (19-29) mEq/L BUN 49 H (7-20) mg/dL Creatinine 2.00 H (0.57-1.11) mg/dL Glucose 205 H (70-99) mg/dL Calcium 7.4 L D (8.6-10.8) mg/dL Total Bilirubin 1.4 H (0.2-1.2) mg/dL AST 38 H (5-34) Units/L ALT 15 (0-55) Units/L Alkaline Phosphatase 107 (38-126) Units/L Albumin 2.0 L D (3.5-5.0) g/dL Consult Discharge Plan - Plan Referrals: Nik Mcmillan MD [Primary Care Provider] -
[2017-08-23] MEDS ORDERED: Lacri-Lube 3.5 GM TUBE BOTH EYES PRN (07:48)
[2017-08-23] MEDS ORDERED: 0.9 % Sodium Chloride 1,000 ML IVC ONE ×2 (07:54→10:39)
[2017-08-23] MEDS ORDERED: Dextrose Gel 15 GM PO PRN ×2 (07:55)
[2017-08-23] MEDS ORDERED: *HR* Dextrose 50 % in Water (Syg) 50 ML SYRINGE IVP PRN (07:55)
[2017-08-23] MEDS ORDERED: D5% in Water 1,000 ML IVC PRN (07:55)
--- NOTE | 2017-08-23 08:03 | Pulmonology Progress Note ---
<Zeferino Matias M - Last Filed: 08/23/17 14:08> Date of Encounter: 08/23/17 Objective PUL Vital signs: Last Vital Signs Temp 98.3 F 08/23/17 11:00 Pulse 85 08/23/17 13:00 Resp 14 08/23/17 13:00 BP 105/68 08/23/17 13:00 Pulse Ox 97 08/23/17 13:00 Ventilator Settings Ventilator Settings: Ventilator Settings, Last 8 Hours Ventilator Mode VC+ Ventilator Mode VC+ Ventilator Mode VC+ Ventilator Mode VC+ Ventilator Mode VC+ Ventilator Mode VC+ Ventilator Mode VC+ Ventilator Mode VC+ Ventilator Mode VC+ Ventilator Mode VC+ Ventilator Mode VC+ Ventilator Tidal Volume 500 Setting Ventilator Tidal Volume 500 Setting Ventilator Tidal Volume 500 Setting Ventilator Tidal Volume 500 Setting Ventilator Tidal Volume 500 Setting Ventilator Tidal Volume 500 Setting Ventilator Tidal Volume 500 Setting Ventilator Tidal Volume 500 Setting Ventilator Tidal Volume 500 Setting Ventilator Tidal Volume 500 Setting Ventilator Tidal Volume 500 Setting Ventilator Respiratory Rate 12 Setting Ventilator Respiratory Rate 12 Setting Ventilator Respiratory Rate 12 Setting Ventilator Respiratory Rate 12 Setting Ventilator Respiratory Rate 12 Setting Ventilator Respiratory Rate 12 Setting Ventilator Respiratory Rate 12 Setting Ventilator Respiratory Rate 12 Setting Ventilator Respiratory Rate 12 Setting Ventilator Respiratory Rate 16 Setting Ventilator Respiratory Rate 12 Setting Actual Respiratory Rate 14 Actual Respiratory Rate 15 Actual Respiratory Rate 17 Actual Respiratory Rate 16 Actual Respiratory Rate 17 Actual Respiratory Rate 16 Actual Respiratory Rate 16 Actual Respiratory Rate 17 Actual Respiratory Rate 17 Actual Respiratory Rate 18 Positive End Expiratory 5 Pressure Positive End Expiratory 5 Pressure Positive End Expiratory 5 Pressure Positive End Expiratory 5 Pressure Positive End Expiratory 5 Pressure Positive End Expiratory 5 Pressure Positive End Expiratory 5 Pressure Positive End Expiratory 5 Pressure Positive End Expiratory 5 Pressure Positive End Expiratory 5 Pressure Positive End Expiratory 5 Pressure Peak Inspiratory Airway 13 Pressure Peak Inspiratory Airway 14 Pressure Peak Inspiratory Airway 14 Pressure Peak Inspiratory Airway 12 Pressure Peak Inspiratory Airway 16 Pressure Peak Inspiratory Airway 14 Pressure Peak Inspiratory Airway 15 Pressure Peak Inspiratory Airway 17 Pressure Peak Inspiratory Airway 15 Pressure Peak Inspiratory Airway 15 Pressure Results - Laboratory Findings CBC and BMP: 08/23/17 04:15 08/23/17 04:15 ABG ABG pH 7.38 pH Units (7.32-7.45) 08/23/17 09:51 ABG pCO2 30 mmHg (35-45) L 08/23/17 09:51 ABG pO2 90 mmHg (85-104) 08/23/17 09:51 ABG O2 Saturation 97 % (95-98) 08/23/17 09:51 PT/INR, D-dimer PT 16.5 Seconds (9.4-12.1) H 08/22/17 11:50 Abnormal lab findings: Abnormal lab results WBC 13.3 K/mcL (4.3-11.1) H 08/23/17 04:15 RDW 15.1 % (11.5-14.5) H 08/23/17 04:15 Plt Count 104 K/mcL (140-400) L 08/23/17 04:15 Band Neutrophils % 6.0 % (0-4) H 08/23/17 04:15 Neutrophils # 12.5 K/mcL (1.6-8.9) H 08/23/17 04:15 Lymphocytes # 0.3 K/mcL (0.6-4.6) L 08/23/17 04:15 Platelet Estimate Decreased (Normal) L 08/23/17 04:15 PT 16.5 Seconds (9.4-12.1) H 08/22/17 11:50 ABG pCO2 30 mmHg (35-45) L 08/23/17 09:51 ABG HCO3 18 mEq/L (21-27) L 08/23/17 09:51 ABG Total CO2 19 mEq/L (20-26) L 08/23/17 09:51 ABG Base Excess -6 mEq/L (-2 to 3) L 08/23/17 09:51 Potassium 4.7 mEq/L (3.5-4.5) H 08/23/17 04:15 Chloride 113 mEq/L (98-109) H 08/23/17 04:15 BUN 49 mg/dL (7-20) H 08/23/17 04:15 Creatinine 2.00 mg/dL (0.57-1.11) H 08/23/17 04:15 Est GFR ( Amer) 30 (> 60) L 08/23/17 04:15 Est GFR (Non-Af Amer) 25 (> 60) L 08/23/17 04:15 Glucose 205 mg/dL (70-99) H 08/23/17 04:15 POC Glucose 171 (58-89) H 08/23/17 11:01 Calculated Osmolality 309 (280-300) H 08/23/17 04:15 Calcium 7.4 mg/dL (8.6-10.8) L D 08/23/17 04:15 Total Bilirubin 1.4 mg/dL (0.2-1.2) H 08/23/17 04:15 Direct Bilirubin 1.3 mg/dL (0.0-0.5) H 08/22/17 11:50 AST 38 Units/L (5-34) H 08/23/17 04:15 Creatine Kinase 539 Units/L (29-168) H 08/22/17 11:50 Serum Total Protein 5.8 g/dL (6.0-8.3) L 08/23/17 04:15 Albumin 2.0 g/dL (3.5-5.0) L D 08/23/17 04:15 Globulin 3.8 g/dL (2.4-3.5) H 08/23/17 04:15 Albumin/Globulin Ratio 0.5 (1.1-2.2) L 08/23/17 04:15 Ur Specimen Adequacy See below A 08/22/17 12:13 Urine Clarity Turbid (Clear) A 08/22/17 12:13 Urine Protein 100 mg/dL (Neg-Trace) H 08/22/17 12:13 Urine Ketones Trace mg/dL (Negative) H 08/22/17 12:13 Urine Blood Large (Negative) H 08/22/17 12:13 Urine Nitrite Positive (Negative) A 08/22/17 12:13 Urine Bilirubin Moderate (Negative) H 08/22/17 12:13 Ur Leukocyte Esterase Large (Negative) H 08/22/17 12:13 Urine Microscopic RBC 30-50 per hpf (0-3) H 08/22/17 12:13 Urine Microscopic WBC TNTC per hpf (0-3) H 08/22/17 12:13 Ur Squamous Epith Cells Many per lpf (None-Few) H 08/22/17 12:13 Urine Bacteria Many per hpf (None-Few) H 08/22/17 12:13 Ur Culture Indicated? YES (NO) A 08/22/17 12:13 Urine Opiates Screen Positive ng/mL (Pwuxnl=498) H 08/22/17 12:13 Enterobacteriac sp PCR DETECTED (Not Detect) A 08/22/17 11:50 E. coli (PCR) DETECTED (Not Detect) A 08/22/17 11:50 Proteus species (PCR) DETECTED (Not Detect) A 08/22/17 11:50 - Clinical Findings Intake & Output: Intake & Output 08/22/17 08/23/17 08/23/17 23:59 07:59 15:59 Intake Total 5 / 5 1261.83 / 1261.83 2293.6 / 2293.6 Output Total 200 / 200 620 / 620 250 / 250 Balance -195 / -195 641.83 / 641.83 2043.6 / 2043.6 Weight 93.2 kg Consult Discharge Plan - Plan Referrals: Nik Mcmillan MD [Primary Care Provider] - - Attending Attestation I examined this patient and my medical decision-making was reviewed with the Resident Physician. I agree with the documented findings, disposition and treatment plan as described except to the extent set forth below. Patient seen and examined. Labs, radiology, chart personally reviewed. 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 Changed vent setting based on her ABG result. She is not stable for spontaneous breathing trial. Patient has acute hypoxic respiratory failure. Cardiovascular: Patient remained hypotensive and I will give her IV fluid as a bolus hoping that she will wean off her pressors. GI: Nutrition per dietary and GI prophylaxis per routine Heme: DVT prophylaxis per routine ID: Continue antibiotics and plan to de-escalation. Stop vancomycin Renal; urine out put and renal funtion reviewed. Continue IV fluid and bolus as urine output decreased. Endorcine: blood glucose is monitored Lines: all lines checked and no evidence of infections Skin: skin care to prevent pressure ulcers per nursing routine care I spent 35 min of Critical Care time with this patient. It involved decision making of high complexity to assess, manipulate, and support vital organ system failure and/or to prevent further life threatening deterioration of the patient' s condition. The time involved in the performance of separately reportable procedures was not counted toward critical care time. <Itz Valenzuela - Last Filed: 08/23/17 18:28> Date of Encounter: 08/23/17 Time of Encounter: 08:00 Assessment and Plan (1) Septic shock Current Visit: Yes Status: Acute Patient was intubated in the ED due to progressively worsening AMS. On admission patient HR 155 RR 19 BP 107/64, BP declined to 87/57 and was then intubated. On admission patient HR 151 BP 85/54. 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 At home, daily straight caths. CT abd/ pelvis - 1.8 cm obstructing calculus at the right ureteropelvic junction, CT head - unremarkable, CXR - stable. RIJ placed on 08/22/17, clinically appears non-infected. urology placed stent on 08/22/17. AMS most likely due to obstructive polynephritis vs bacteremia vs decubitis ulcer infection complication - serology positive for eneterobacteriac, e.coli, and proteus. venupunctures positive for gram negative rods. on chart review, patient's previous proteus is kramer sensitive, and e.coli was resistent to fluoroquinolones - D/C vanc and ceftriaxone - Abx: Day 1 of Zosyn - MAP goal 65, currently 86. Will try to stop levophed - Diltiazem for HR >100 - sedation: Precedex + fentanyl - closely monitor I/O - decubitis ulcer stage 4 tunneled, wound care consulted (2) Obstructive pyelonephritis Current Visit: Yes Status: Acute CT abd/pelvis - 1.8 cm x 0.7 cm x 0.5 cm obstructing calculus at the right ureteropelvic junction, resulting in mild right hydronephrosis. urology placed stents 08/22/17 - urology following - closely follow I/O - continue abx (3) Bacteremia Current Visit: Yes Status: Acute Patient serology came back positive for enterobacter, e. coli, and proteus. Venupuncture positive for Gram negative rods. Patient has had multiple recurrent episodes of proteus and e. coli hospitalizations. proteus has been kramer sensitive, and e.coli has been resistent to fluoroquinolones. per chart review. 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 Patients habitus is a contributing factor (6) Obesity Current Visit: Yes Status: Acute outpatient followup Qualifiers: Qualified Code(s): E66.9 - Obesity, unspecified (7) Chronic constipation Current Visit: Yes Status: Acute Patient has 1 bowel movement a week and last at home was on tuesday. on imaging , patient appears to have significant compaction in colon. - Enema ordered (8) DVT prophylaxis Current Visit: Yes Status: Acute subq heparin Subjective Principal diagnosis: Septic Shock Interval history: Ms Swan is a 71 year old female day 2 admit 2/ septic shock source most likely from obstructive pyelonephritis. No acute events over night. patient had a fever that responded to tylenol. patient remains sedated and intubated Objective PUL Vital signs: Last Vital Signs Temp 98.6 F 08/23/17 07:00 Pulse 86 08/23/17 07:00 Resp 18 08/23/17 07:18 BP 115/71 08/23/17 07:18 Pulse Ox 97 08/23/17 07:18 General appearance: asleep Eyes: other (pupils constrict to light bilaterally) Neck: other (RIJ appears non-infected) Effort: other (patient remains sedated and mechanically ventilated) Auscultation: bilateral: clear Cardiovascular: regular rate and rhythm Gastrointestinal: absent bowel sounds, non-distended Integumentary: decubitus ulcer (chronic tunneled 10 cm L2-L5, appears non- edematous.) Extremities: pulses normal, cool (lower extremities cool to touch, positive pulses on doppler dorsalis pedis), other (upper extremities warm to touch, with positive and equal radial pulses bilaterally) pupils equal and round, unable to assess due to mental status, other (patient withdrawals from pain stimulus, and will squeeze hands and open eyes to verbal command) Ventilator Settings Ventilator Settings: Ventilator Settings, Last 8 Hours Ventilator Mode VC+ Ventilator Mode VC+ Ventilator Mode VC+ Ventilator Mode VC+ Ventilator Mode VC+ Ventilator Mode VC+ Ventilator Mode VC+ Ventilator Tidal Volume 500 Setting Ventilator Tidal Volume 500 Setting Ventilator Tidal Volume 500 Setting Ventilator Tidal Volume 500 Setting Ventilator Tidal Volume 500 Setting Ventilator Tidal Volume 500 Setting Ventilator Tidal Volume 500 Setting Ventilator Respiratory Rate 16 Setting Ventilator Respiratory Rate 12 Setting Ventilator Respiratory Rate 16 Setting Ventilator Respiratory Rate 16 Setting Ventilator Respiratory Rate 16 Setting Ventilator Respiratory Rate 16 Setting Ventilator Respiratory Rate 16 Setting Actual Respiratory Rate 17 Actual Respiratory Rate 18 Actual Respiratory Rate 17 Actual Respiratory Rate 18 Actual Respiratory Rate 18 Actual Respiratory Rate 20 Positive End Expiratory 5 Pressure Positive End Expiratory 5 Pressure Positive End Expiratory 5 Pressure Positive End Expiratory 5 Pressure Positive End Expiratory 5 Pressure Positive End Expiratory 5 Pressure Positive End Expiratory 5 Pressure Peak Inspiratory Airway 15 Pressure Peak Inspiratory Airway 15 Pressure Peak Inspiratory Airway 16 Pressure Peak Inspiratory Airway 16 Pressure Peak Inspiratory Airway 16 Pressure Peak Inspiratory Airway 19 Pressure Results - Laboratory Findings CBC and BMP: 08/23/17 04:15 08/23/17 04:15 ABG ABG pH 7.41 pH Units (7.32-7.45) 08/23/17 04:40 ABG pCO2 30 mmHg (35-45) L 08/23/17 04:40 ABG pO2 105 mmHg (85-104) H 08/23/17 04:40 ABG O2 Saturation 98 % (95-98) 08/23/17 04:40 PT/INR, D-dimer PT 16.5 Seconds (9.4-12.1) H 08/22/17 11:50 Abnormal lab findings: Abnormal lab results WBC 13.3 K/mcL (4.3-11.1) H 08/23/17 04:15 RDW 15.1 % (11.5-14.5) H 08/23/17 04:15 Plt Count 104 K/mcL (140-400) L 08/23/17 04:15 Band Neutrophils % 6.0 % (0-4) H 08/23/17 04:15 Neutrophils # 12.5 K/mcL (1.6-8.9) H 08/23/17 04:15 Lymphocytes # 0.3 K/mcL (0.6-4.6) L 08/23/17 04:15 Platelet Estimate Decreased (Normal) L 08/23/17 04:15 PT 16.5 Seconds (9.4-12.1) H 08/22/17 11:50 ABG pCO2 30 mmHg (35-45) L 08/23/17 04:40 ABG pO2 105 mmHg (85-104) H 08/23/17 04:40 ABG HCO3 19 mEq/L (21-27) L 08/23/17 04:40 ABG Base Excess -5 mEq/L (-2 to 3) L 08/23/17 04:40 Potassium 4.7 mEq/L (3.5-4.5) H 08/23/17 04:15 Chloride 113 mEq/L (98-109) H 08/23/17 04:15 BUN 49 mg/dL (7-20) H 08/23/17 04:15 Creatinine 2.00 mg/dL (0.57-1.11) H 08/23/17 04:15 Est GFR ( Amer) 30 (> 60) L 08/23/17 04:15 Est GFR (Non-Af Amer) 25 (> 60) L 08/23/17 04:15 Glucose 205 mg/dL (70-99) H 08/23/17 04:15 POC Glucose 231 (58-89) H 08/22/17 15:04 Calculated Osmolality 309 (280-300) H 08/23/17 04:15 Calcium 7.4 mg/dL (8.6-10.8) L D 08/23/17 04:15 Total Bilirubin 1.4 mg/dL (0.2-1.2) H 08/23/17 04:15 Direct Bilirubin 1.3 mg/dL (0.0-0.5) H 08/22/17 11:50 AST 38 Units/L (5-34) H 08/23/17 04:15 Creatine Kinase 539 Units/L (29-168) H 08/22/17 11:50 Serum Total Protein 5.8 g/dL (6.0-8.3) L 08/23/17 04:15 Albumin 2.0 g/dL (3.5-5.0) L D 08/23/17 04:15 Globulin 3.8 g/dL (2.4-3.5) H 08/23/17 04:15 Albumin/Globulin Ratio 0.5 (1.1-2.2) L 08/23/17 04:15 Ur Specimen Adequacy See below A 08/22/17 12:13 Urine Clarity Turbid (Clear) A 08/22/17 12:13 Urine Protein 100 mg/dL (Neg-Trace) H 08/22/17 12:13 Urine Ketones Trace mg/dL (Negative) H 08/22/17 12:13 Urine Blood Large (Negative) H 08/22/17 12:13 Urine Nitrite Positive (Negative) A 08/22/17 12:13 Urine Bilirubin Moderate (Negative) H 08/22/17 12:13 Ur Leukocyte Esterase Large (Negative) H 08/22/17 12:13 Urine Microscopic RBC 30-50 per hpf (0-3) H 08/22/17 12:13 Urine Microscopic WBC TNTC per hpf (0-3) H 08/22/17 12:13 Ur Squamous Epith Cells Many per lpf (None-Few) H 08/22/17 12:13 Urine Bacteria Many per hpf (None-Few) H 08/22/17 12:13 Ur Culture Indicated? YES (NO) A 08/22/17 12:13 Urine Opiates Screen Positive ng/mL (Tncerm=280) H 08/22/17 12:13 Enterobacteriac sp PCR DETECTED (Not Detect) A 08/22/17 11:50 E. coli (PCR) DETECTED (Not Detect) A 08/22/17 11:50 Proteus species (PCR) DETECTED (Not Detect) A 08/22/17 11:50 - Clinical Findings Intake & Output: Intake & Output 08/22/17 08/23/17 08/23/17 23:59 07:59 15:59 Intake Total 1245.83 / 1245.83 Output Total 200 / 200 620 / 620 Balance -195 / -195 625.83 / 625.83 Weight 93.2 kg
[2017-08-23] MEDS: Pantoprazole 40 MG VIAL IVP SCH (08:06)
[2017-08-23] MEDS: Lacri-Lube 3.5 GM TUBE BOTH EYES SCH ×4 (08:06→20:17)
[2017-08-23] MEDS: Chlorhexidine Rinse 15 ML MOUTHWASH MM SCH ×2 (08:06→20:39)
[2017-08-23] MEDS: Lactobacillus 1 EACH CAP.SPRINK PO SCH ×2 (08:06→20:39)
[2017-08-23] MEDS: Piperacillin/Tazobactam 3.375 GM in D5% in Water (Mini-Bag+) 100 ML IVPB SCH ×2 (08:10→16:29)
[2017-08-23] MEDS ORDERED: Aminoglycoside Consult 1 EACH MC ONE (08:33)
[2017-08-23] MEDS: FentaNYL (PF) 1,000 MCG in 0.9 % Sodium Chloride 80 ML IVC SCH (09:07)
[2017-08-23 10:10] LABS: ABG Base Excess -6 mEq/L (-2 to 3); ABG HCO3 18 mEq/L (21-27); ABG Oxygen Saturation 97 % (95-98); ABG PCO2 30 mmHg (35-45); ABG PH 7.38 pH Units (7.32-7.45); ABG PO2 90 mmHg (85-104); ABG TCO2 19 mEq/L (20-26); Blood Gas Modality PRVC; Blood Gas Respiration Rate 1; Blood Gas VT 500 cc
[2017-08-23] MEDS ORDERED: Milk and Molasses Enema 200 ML RC ONE (10:42)
[2017-08-23 11:07] LABS: Magnesium 1.7 mg/dL (1.6-2.6)
[2017-08-23] MEDS: Insulin LISPRO 300 UNITS/3 ML VIAL SQ SCH ×2 (11:08→18:18)
[2017-08-23] MEDS ORDERED: Magnesium Sulfate 2 GM in D5% in Water 100 ML IVPB ONE (11:13)
[2017-08-23] MEDS: Norepinephrine 4 MG in D5% in Water 250 ML IVC SCH (11:37)
[2017-08-23] MEDS ORDERED: Vancomycin 1,000 MG in D5% in Water 250 ML IVPB SCH (12:00)
--- NOTE | 2017-08-23 14:14 | Event Note ---
Date of Encounter: 08/23/17 Time of Encounter: 14:12
[2017-08-24] MEDS: Piperacillin/Tazobactam 3.375 GM in D5% in Water (Mini-Bag+) 100 ML IVPB SCH ×3 (00:10→16:17)
[2017-08-24] MEDS: Lacri-Lube 3.5 GM TUBE BOTH EYES SCH ×6 (00:11→19:55)
[2017-08-24] MEDS: Insulin LISPRO 300 UNITS/3 ML VIAL SQ SCH ×4 (00:11→17:50)
[2017-08-24] MEDS: FentaNYL (PF) 1,000 MCG in 0.9 % Sodium Chloride 80 ML IVC SCH (01:11)
[2017-08-24] MEDS: 0.9 % Sodium Chloride 1,000 ML IVC SCH ×3 (01:12→20:53)
[2017-08-24] MEDS: Dexmedetomidine HCl 400 MCG/100 ML MLS IVC SCH ×3 (04:03→19:56)
[2017-08-24 04:29] LABS: Mean Corpuscular Volume 93.5 fL (83.0-100.0)
[2017-08-24 04:31] LABS: Hematocrit 32.9 % (35.3-44.9); Hemoglobin 10.7 g/dL (11.5-15.4); Immature Platelets 5.7 % (1.1-6.1); Lymphocytes # 0.4 K/mcL (0.6-4.6); Mean Corpuscular HGB Conc 32.5 g/dL (31.6-35.5); Mean Corpuscular Hemoglobin 30.4 pg (28.0-33.3); Mean Platelet Volume 11.2 fL (9.4-12.4); Red Blood Count 3.52 M/mcL (3.82-4.97); Red Cell Distribution Width 15.5 % (11.5-14.5)
[2017-08-24 04:33] LABS: Platelet Count 89 K/mcL (140-400)
[2017-08-24 04:40] LABS: Albumin 1.8 g/dL (3.5-5.0); Albumin/Globulin Ratio 0.5 (1.1-2.2); Bilirubin,Total 0.8 mg/dL (0.2-1.2); Calcium 7.4 mg/dL (8.6-10.8); Globulin 3.6 g/dL (2.4-3.5); Potassium 3.9 mEq/L (3.5-4.5); Total Protein 5.4 g/dL (6.0-8.3)
[2017-08-24 04:55] LABS: Eosinophils # 0.3 K/mcL (0.0-0.6); Monocytes # 0.3 K/mcL (0.0-1.3); Neutrophils # 5.7 K/mcL (1.6-8.9)
[2017-08-24 04:56] LABS: Platelet Estimate Decreased (Normal)
[2017-08-24] MEDS: *HR* Heparin 5,000 UNIT/ML VIAL SQ SCH ×2 (06:39→17:50)
--- NOTE | 2017-08-24 07:48 | Urology Progress Note ---
Date of Encounter: 08/24/17 Time of Encounter: 07:46 - Assessment and Plan (1) Right ureteral stone Current Visit: Yes Status: Acute Assessment and plan: Postoperative #2 status post cystoscopy and right ureteral stent placement. Appreciate critical care support. Continue supportive care with antibiotics. Definitive stone surgery will be considered once she has recovered from her critical illness. Progress Note Narrative: Postoperative day #2 status post cystoscopy and right ureteral stent placement. She had another fever last night. She remains intubated and sedated in the ICU. Objective Initial Vital Signs Temp Pulse Resp BP Pulse Ox 0 F L 155 19 107/64 93 08/22/17 11:36 08/22/17 11:36 08/22/17 11:36 08/22/17 11:36 08/22/17 11:36 - General physical appearance Present: other (Intubated, sedated) - Respiratory Present: normal expansion - Abdomen Present: soft - Genitourinary Urine Appearance: Present: Hematuria (Kell to light pink color. Catheter in place) - Labs 08/24/17 04:15 08/24/17 04:15 Diabetes panel 08/23/17 08/24/17 Range/Units 04:15 04:15 Sodium 140 142 (136-145) mEq/L Potassium 4.7 H 3.9 (3.5-4.5) mEq/L Chloride 113 H 117 H (98-109) mEq/L Carbon Dioxide 19 19 (19-29) mEq/L BUN 49 H 49 H (7-20) mg/dL Creatinine 2.00 H 1.59 H (0.57-1.11) mg/dL Glucose 205 H 143 H (70-99) mg/dL Calcium 7.4 L D 7.4 L (8.6-10.8) mg/dL AST 38 H 36 H (5-34) Units/L ALT 15 16 (0-55) Units/L Alkaline Phosphatase 107 82 (38-126) Units/L Albumin 2.0 L D 1.8 L (3.5-5.0) g/dL Calcium panel 08/23/17 08/24/17 Range/Units 04:15 04:15 Calcium 7.4 L D 7.4 L (8.6-10.8) mg/dL Albumin 2.0 L D 1.8 L (3.5-5.0) g/dL Pituitary panel 08/23/17 08/24/17 Range/Units 04:15 04:15 Sodium 140 142 (136-145) mEq/L Potassium 4.7 H 3.9 (3.5-4.5) mEq/L Chloride 113 H 117 H (98-109) mEq/L Carbon Dioxide 19 19 (19-29) mEq/L BUN 49 H 49 H (7-20) mg/dL Creatinine 2.00 H 1.59 H (0.57-1.11) mg/dL Glucose 205 H 143 H (70-99) mg/dL Calcium 7.4 L D 7.4 L (8.6-10.8) mg/dL Adrenal panel 08/23/17 08/24/17 Range/Units 04:15 04:15 Sodium 140 142 (136-145) mEq/L Potassium 4.7 H 3.9 (3.5-4.5) mEq/L Chloride 113 H 117 H (98-109) mEq/L Carbon Dioxide 19 19 (19-29) mEq/L BUN 49 H 49 H (7-20) mg/dL Creatinine 2.00 H 1.59 H (0.57-1.11) mg/dL Glucose 205 H 143 H (70-99) mg/dL Calcium 7.4 L D 7.4 L (8.6-10.8) mg/dL Total Bilirubin 1.4 H 0.8 (0.2-1.2) mg/dL AST 38 H 36 H (5-34) Units/L ALT 15 16 (0-55) Units/L Alkaline Phosphatase 107 82 (38-126) Units/L Albumin 2.0 L D 1.8 L (3.5-5.0) g/dL Consult Discharge Plan - Plan Referrals: Nik Mcmillan MD [Primary Care Provider] -
[2017-08-24] MEDS: Pantoprazole 40 MG VIAL IVP SCH (08:27)
[2017-08-24] MEDS: Chlorhexidine Rinse 15 ML MOUTHWASH MM SCH ×2 (08:27→19:56)
[2017-08-24] MEDS: Lactobacillus 1 EACH CAP.SPRINK PO SCH ×2 (08:27→20:53)
--- NOTE | 2017-08-24 09:37 | Pulmonology Progress Note ---
<Itz Valenzuela - Last Filed: 08/24/17 09:34> Date of Encounter: 08/24/17 Time of Encounter: 09:35 Assessment and Plan (1) Septic shock Current Visit: Yes Status: Acute Patient was intubated in the ED due to progressively worsening AMS. On admission patient HR 155 RR 19 BP 107/64, BP declined to 87/57 and was then intubated. On admission patient HR 151 BP 85/54. 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 At home, daily straight caths. CT abd/ pelvis - 1.8 cm obstructing calculus at the right ureteropelvic junction, CT head - unremarkable, CXR - stable. RIJ placed on 08/22/17, clinically appears non-infected. urology placed stent on 08/22/17. AMS most likely due to obstructive polynephritis vs bacteremia vs decubitis ulcer infection complication - serology positive for eneterobacteriac, e.coli, and proteus. venupunctures positive for gram negative rods. on chart review, patient's previous proteus is kramer sensitive, and e.coli was resistent to fluoroquinolones - Abx: Day 2 of Zosyn - MAP goal 65, currently 77. Will stop levophed - Diltiazem for HR >100 - currently awake. weaning sedation: Precedex + fentanyl - closely monitor I/O. nephro following - decubitis ulcer stage 4 tunneled, wound care consulted (2) Obstructive pyelonephritis Current Visit: Yes Status: Acute CT abd/pelvis - 1.8 cm x 0.7 cm x 0.5 cm obstructing calculus at the right ureteropelvic junction, resulting in mild right hydronephrosis. urology placed stents 08/22/17 - urology following. Will surgical remove stone once stable - closely follow I/O - continue abx (3) Bacteremia Current Visit: Yes Status: Acute Patient serology came back positive for enterobacter, e. coli, and proteus. Venupuncture positive for Gram negative rods. Patient has had multiple recurrent episodes of proteus and e. coli hospitalizations. proteus has been kramer sensitive, and e.coli has been resistent to fluoroquinolones. per chart review. 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 Patients habitus is a contributing factor (6) Obesity Current Visit: Yes Status: Acute outpatient followup Qualifiers: Qualified Code(s): E66.9 - Obesity, unspecified (7) Chronic constipation Current Visit: Yes Status: Acute Patient has 1 bowel movement a week and last at home was on tuesday. on imaging , patient appears to have significant compaction in colon. - manual decompression performed yesterday (8) DVT prophylaxis Current Visit: Yes Status: Acute subq heparin Subjective Principal diagnosis: Septic Shock Interval history: Ms Swan is a 71 year old female day 2 admit 2/2 septic shock source most likely from obstructive pyelonephritis. No acute events over night besides a few episodes of SVT which responded to cardizem. Patient is currently awake and responding to oral commands Objective PUL Vital signs: Last Vital Signs Temp 98.7 F 08/24/17 08:05 Pulse 86 08/24/17 09:00 Resp 18 08/24/17 09:00 BP 90/60 08/24/17 09:00 Pulse Ox 96 08/24/17 09:00 General appearance: no acute distress, alert, lethargic Eyes: nonicteric Effort: other (currently mechanical ventilation) Auscultation: bilateral: clear Cardiovascular: regular rate and rhythm Gastrointestinal: hypoactive bowel sounds, non-tender, non-distended Integumentary: normal, decubitus ulcer (L2-L5 10 cm tunneled chronic decubitis ulcer. continues to be non-infectious appearing) Extremities: pulses normal (bilaterally equal and regular at radial, posterior tibial, and dorsalis pedis), other (1-2 second cap refill on 2nd digit bilaterally) unable to assess due to mental status Ventilator Settings Ventilator Settings: Ventilator Settings, Last 8 Hours Ventilator Mode CPAP Ventilator Mode CPAP Ventilator Mode CPAP Ventilator Mode VC+ Ventilator Mode VC+ Ventilator Mode VC+ Ventilator Mode VC+ Ventilator Mode VC+ Ventilator Tidal Volume 500 Setting Ventilator Tidal Volume 500 Setting Ventilator Tidal Volume 500 Setting Ventilator Tidal Volume 500 Setting Ventilator Tidal Volume 500 Setting Ventilator Respiratory Rate 12 Setting Ventilator Respiratory Rate 12 Setting Ventilator Respiratory Rate 12 Setting Ventilator Respiratory Rate 12 Setting Ventilator Respiratory Rate 12 Setting Actual Respiratory Rate 18 Actual Respiratory Rate 21 Actual Respiratory Rate 16 Actual Respiratory Rate 16 Actual Respiratory Rate 17 Positive End Expiratory 5 Pressure Positive End Expiratory 5 Pressure Positive End Expiratory 5 Pressure Positive End Expiratory 5 Pressure Positive End Expiratory 5 Pressure Positive End Expiratory 5 Pressure Peak Inspiratory Airway 11 Pressure Peak Inspiratory Airway 11 Pressure Peak Inspiratory Airway 12 Pressure Peak Inspiratory Airway 13 Pressure Peak Inspiratory Airway 11 Pressure Peak Inspiratory Airway 11 Pressure Results - Laboratory Findings CBC and BMP: 08/24/17 04:15 08/24/17 04:15 ABG ABG pH 7.38 pH Units (7.32-7.45) 08/23/17 09:51 ABG pCO2 30 mmHg (35-45) L 08/23/17 09:51 ABG pO2 90 mmHg (85-104) 08/23/17 09:51 ABG O2 Saturation 97 % (95-98) 08/23/17 09:51 PT/INR, D-dimer PT 16.5 Seconds (9.4-12.1) H 08/22/17 11:50 Abnormal lab findings: Abnormal lab results RBC 3.52 M/mcL (3.82-4.97) L 08/24/17 04:15 Hgb 10.7 g/dL (11.5-15.4) L 08/24/17 04:15 Hct 32.9 % (35.3-44.9) L 08/24/17 04:15 RDW 15.5 % (11.5-14.5) H 08/24/17 04:15 Plt Count 89 K/mcL (140-400) L 08/24/17 04:15 Band Neutrophils % 18.0 % (0-4) H 08/24/17 04:15 Lymphocytes # 0.4 K/mcL (0.6-4.6) L 08/24/17 04:15 Platelet Estimate Decreased (Normal) L 08/24/17 04:15 PT 16.5 Seconds (9.4-12.1) H 08/22/17 11:50 ABG pCO2 30 mmHg (35-45) L 08/23/17 09:51 ABG HCO3 18 mEq/L (21-27) L 08/23/17 09:51 ABG Total CO2 19 mEq/L (20-26) L 08/23/17 09:51 ABG Base Excess -6 mEq/L (-2 to 3) L 08/23/17 09:51 Chloride 117 mEq/L (98-109) H 08/24/17 04:15 BUN 49 mg/dL (7-20) H 08/24/17 04:15 Creatinine 1.59 mg/dL (0.57-1.11) H 08/24/17 04:15 Est GFR ( Amer) 39 (> 60) L 08/24/17 04:15 Est GFR (Non-Af Amer) 32 (> 60) L 08/24/17 04:15 BUN/Creatinine Ratio 31 (6-26) H 08/24/17 04:15 Glucose 143 mg/dL (70-99) H 08/24/17 04:15 POC Glucose 138 (58-89) H 08/24/17 06:38 Calculated Osmolality 309 (280-300) H 08/24/17 04:15 Calcium 7.4 mg/dL (8.6-10.8) L 08/24/17 04:15 Direct Bilirubin 1.3 mg/dL (0.0-0.5) H 08/22/17 11:50 AST 36 Units/L (5-34) H 08/24/17 04:15 Creatine Kinase 539 Units/L (29-168) H 08/22/17 11:50 Serum Total Protein 5.4 g/dL (6.0-8.3) L 08/24/17 04:15 Albumin 1.8 g/dL (3.5-5.0) L 08/24/17 04:15 Globulin 3.6 g/dL (2.4-3.5) H 08/24/17 04:15 Albumin/Globulin Ratio 0.5 (1.1-2.2) L 08/24/17 04:15 Ur Specimen Adequacy See below A 08/22/17 12:13 Urine Clarity Turbid (Clear) A 08/22/17 12:13 Urine Protein 100 mg/dL (Neg-Trace) H 08/22/17 12:13 Urine Ketones Trace mg/dL (Negative) H 08/22/17 12:13 Urine Blood Large (Negative) H 08/22/17 12:13 Urine Nitrite Positive (Negative) A 08/22/17 12:13 Urine Bilirubin Moderate (Negative) H 08/22/17 12:13 Ur Leukocyte Esterase Large (Negative) H 08/22/17 12:13 Urine Microscopic RBC 30-50 per hpf (0-3) H 08/22/17 12:13 Urine Microscopic WBC TNTC per hpf (0-3) H 08/22/17 12:13 Ur Squamous Epith Cells Many per lpf (None-Few) H 08/22/17 12:13 Urine Bacteria Many per hpf (None-Few) H 08/22/17 12:13 Ur Culture Indicated? YES (NO) A 08/22/17 12:13 Urine Opiates Screen Positive ng/mL (Krbnyf=[id number]) H 08/22/17 12:13 Enterobacteriac sp PCR DETECTED (Not Detect) A 08/22/17 11:50 E. coli (PCR) DETECTED (Not Detect) A 08/22/17 11:50 Proteus species (PCR) DETECTED (Not Detect) A 08/22/17 11:50 - Microbiology Findings Microbiology Findings: Microbiology, Last 48 Hours 08/23/17 01:20 Wound Culture - Preliminary Back No growth. - Clinical Findings Intake & Output: Intake & Output 08/23/17 08/24/17 08/24/17 23:59 07:59 15:59 Intake Total 100 / 100 1340 / 1340 Output Total 625 / 625 400 / 400 300 / 300 Balance -525 / -525 940 / 940 -300 / -300 Weight 96.4 kg Consult Discharge Plan - Plan Referrals: Nik Mcmillan MD [Primary Care Provider] - <Zeferino Matias - Last Filed: 08/24/17 22:49> Date of Encounter: 08/24/17 Objective PUL Vital signs: Last Vital Signs Temp 98.1 F 08/24/17 16:15 Pulse 93 08/24/17 15:20 Resp 18 08/24/17 15:00 BP 118/64 08/24/17 15:00 Pulse Ox 96 08/24/17 15:00 Ventilator Settings Ventilator Settings: Ventilator Settings, Last 8 Hours Ventilator Mode CPAP Ventilator Mode CPAP Ventilator Mode CPAP Actual Respiratory Rate 18 Actual Respiratory Rate 16 Actual Respiratory Rate 18 Positive End Expiratory 5 Pressure Peak Inspiratory Airway 11 Pressure Results - Laboratory Findings CBC and BMP: 10/11/17 04:15 08/24/17 04:15 ABG ABG pH 7.38 pH Units (7.32-7.45) 08/23/17 09:51 ABG pCO2 30 mmHg (35-45) L 08/23/17 09:51 ABG pO2 90 mmHg (85-104) 08/23/17 09:51 ABG O2 Saturation 97 % (95-98) 08/23/17 09:51 PT/INR, D-dimer PT 16.5 Seconds (9.4-12.1) H 08/22/17 11:50 Abnormal lab findings: Abnormal lab results RBC 3.52 M/mcL (3.82-4.97) L 08/24/17 04:15 Hgb 10.7 g/dL (11.5-15.4) L 08/24/17 04:15 Hct 32.9 % (35.3-44.9) L 08/24/17 04:15 RDW 15.5 % (11.5-14.5) H 08/24/17 04:15 Plt Count 89 K/mcL (140-400) L 08/24/17 04:15 Band Neutrophils % 18.0 % (0-4) H 08/24/17 04:15 Lymphocytes # 0.4 K/mcL (0.6-4.6) L 08/24/17 04:15 Platelet Estimate Decreased (Normal) L 08/24/17 04:15 PT 16.5 Seconds (9.4-12.1) H 08/22/17 11:50 ABG pCO2 30 mmHg (35-45) L 08/23/17 09:51 ABG HCO3 18 mEq/L (21-27) L 08/23/17 09:51 ABG Total CO2 19 mEq/L (20-26) L 08/23/17 09:51 ABG Base Excess -6 mEq/L (-2 to 3) L 08/23/17 09:51 Chloride 117 mEq/L (98-109) H 08/24/17 04:15 BUN 49 mg/dL (7-20) H 08/24/17 04:15 Creatinine 1.59 mg/dL (0.57-1.11) H 08/24/17 04:15 Est GFR ( Amer) 39 (> 60) L 08/24/17 04:15 Est GFR (Non-Af Amer) 32 (> 60) L 08/24/17 04:15 BUN/Creatinine Ratio 31 (6-26) H 08/24/17 04:15 Glucose 143 mg/dL (70-99) H 08/24/17 04:15 POC Glucose 148 (58-89) H 08/24/17 11:58 Calculated Osmolality 309 (280-300) H 08/24/17 04:15 Calcium 7.4 mg/dL (8.6-10.8) L 08/24/17 04:15 Direct Bilirubin 1.3 mg/dL (0.0-0.5) H 08/22/17 11:50 AST 36 Units/L (5-34) H 08/24/17 04:15 Creatine Kinase 539 Units/L (29-168) H 08/22/17 11:50 Serum Total Protein 5.4 g/dL (6.0-8.3) L 08/24/17 04:15 Albumin 1.8 g/dL (3.5-5.0) L 08/24/17 04:15 Globulin 3.6 g/dL (2.4-3.5) H 08/24/17 04:15 Albumin/Globulin Ratio 0.5 (1.1-2.2) L 08/24/17 04:15 Ur Specimen Adequacy See below A 08/22/17 12:13 Urine Clarity Turbid (Clear) A 08/22/17 12:13 Urine Protein 100 mg/dL (Neg-Trace) H 08/22/17 12:13 Urine Ketones Trace mg/dL (Negative) H 08/22/17 12:13 Urine Blood Large (Negative) H 08/22/17 12:13 Urine Nitrite Positive (Negative) A 08/22/17 12:13 Urine Bilirubin Moderate (Negative) H 08/22/17 12:13 Ur Leukocyte Esterase Large (Negative) H 08/22/17 12:13 Urine Microscopic RBC 30-50 per hpf (0-3) H 08/22/17 12:13 Urine Microscopic WBC TNTC per hpf (0-3) H 08/22/17 12:13 Ur Squamous Epith Cells Many per lpf (None-Few) H 08/22/17 12:13 Urine Bacteria Many per hpf (None-Few) H 08/22/17 12:13 Ur Culture Indicated? YES (NO) A 08/22/17 12:13 Urine Opiates Screen Positive ng/mL (Zikfmx=227) H 08/22/17 12:13 Enterobacteriac sp PCR DETECTED (Not Detect) A 08/22/17 11:50 E. coli (PCR) DETECTED (Not Detect) A 08/22/17 11:50 Proteus species (PCR) DETECTED (Not Detect) A 08/22/17 11:50 - Microbiology Findings Microbiology Findings: Microbiology, Last 48 Hours 08/23/17 01:20 Wound Culture - Preliminary Back No growth. - Clinical Findings Intake & Output: Intake & Output 08/24/17 08/24/17 08/24/17 07:59 15:59 23:59 Intake Total 1340 / 1340 1201.4 / 1201.4 Output Total 400 / 400 650 / 650 450 / 450 Balance 940 / 940 551.4 / 551.4 -450 / -450 Weight 96.4 kg - Attending Attestation I examined this patient and my medical decision-making was reviewed with the Resident Physician. I agree with the documented findings, disposition and treatment plan as described except to the extent set forth below. Patient seen and examined. Labs, radiology, chart personally reviewed. Agree with resident's history and physical, assessment, plan with following comments: STERILIZATION SPECIALIST: Patient follows commands now and she is appropriate. Her alter mental status in the beginning was due to her underlying sepsis, or encephalopathy due to severe sepsis and it has improved with the treatment. Pulmonary: Acceptable oxygenation and ventilation and patient was extubated successfully Cardiovascular: stable and was able to wean her off vasopressors GI: Nutrition per dietary and GI prophylaxis per routine Heme: DVT prophylaxis per routine ID: Continue antibiotics and plan to de-escalation Renal; urine out put and renal funtion reviewed Endorcine: blood glucose is monitored Lines: all lines checked and no evidence of infections Skin: skin care to prevent pressure ulcers per nursing routine care Discussed with the family at the bedside and overall patient is stabilizing.
--- NOTE | 2017-08-24 11:24 | Electrocardiograph Report ---
[place] [employer] Test Date: 2017-08-22 Pat Name: Judith Swan Department: 103 Room: IC11 Gender: F First Aid Attendant: MSC : [id number] Requested By: Kemal Baird Order Number: [id number] Reading MD: Christ Blackwell MD Measurements Intervals [place] Rate: 153 P: 225 TX: 87 QRS: 21 QRSD: 93 T: 58 QT: 302 QTc: 388 Interpretive Statements SINUS TACHYCARDIA WITH SHORT TX INTERVAL, POSSIBLE ATRIAL FLUTTER ABNORMAL RHYTHM ECG Electronically Signed On 08-24-2017 11:22:39 EDT by Christ Blackwell MD
--- NOTE | 2017-08-24 12:13 | Electrocardiograph Report ---
[place] [employer] [facility] Test Date: 2017-08-22 Pat Name: Judith Swan Department: 103 Room: IC11 Gender: F Mining Plant Operator: MSC : [id number] Requested By: Kemal Baird Order Number: [id number] Reading MD: Christ Blackwell MD Measurements Intervals [place] Rate: 108 P: 12 IN: 136 QRS: 38 QRSD: 108 T: 54 QT: 374 QTc: 437 Interpretive Statements SINUS TACHYCARDIA INCOMPLETE RIGHT BUNDLE BRANCH BLOCK [90+ ms QRS DURATION, TERMINAL R IN V1/V2, 40+ ms S IN I/aVL/V4/V5/V6] ABNORMAL RHYTHM ECG Electronically Signed On 08-24-2017 12:11:17 EDT by Christ Blackwell MD
[2017-08-24] MEDS: Norepinephrine 4 MG in D5% in Water 250 ML IVC SCH (16:13)
[2017-08-25] MEDS: Piperacillin/Tazobactam 3.375 GM in D5% in Water (Mini-Bag+) 100 ML IVPB SCH ×3 (00:12→15:33)
[2017-08-25] MEDS: Lacri-Lube 3.5 GM TUBE BOTH EYES SCH ×3 (00:22→07:43)
[2017-08-25] MEDS: Insulin LISPRO 300 UNITS/3 ML VIAL SQ SCH ×2 (00:22→06:17)
[2017-08-25] MEDS ORDERED: *HR* Morphine 2 MG/ML SYRINGE IVP PRN ×3 (02:27→09:36)
[2017-08-25 04:54] LABS: Basophils % 0.2 %; Eosinophils % 0.9 %; Hematocrit 29.7 % (35.3-44.9); Hemoglobin 9.8 g/dL (11.5-15.4); Immature Granulocytes % 0.4 % (0-4); Lymphocytes # 0.5 K/mcL (0.6-4.6); Lymphocytes % 10.5 %; Mean Corpuscular Hemoglobin 29.9 pg (28.0-33.3); Mean Corpuscular Volume 90.5 fL (83.0-100.0); Monocytes # 0.4 K/mcL (0.0-1.3); Monocytes % 9.2 %; Neutrophils # 3.6 K/mcL (1.6-8.9); Red Blood Count 3.28 M/mcL (3.82-4.97); Red Cell Distribution Width 15.6 % (11.5-14.5); Segmented Neutrophils % 78.8 %
[2017-08-25 04:56] LABS: Platelet Count 76 K/mcL (140-400)
[2017-08-25] MEDS: Dexmedetomidine HCl 400 MCG/100 ML MLS IVC SCH (06:17)
[2017-08-25] MEDS: 0.9 % Sodium Chloride 1,000 ML IVC SCH ×4 (06:18→20:16)
[2017-08-25] MEDS: *HR* Heparin 5,000 UNIT/ML VIAL SQ SCH (06:18)
[2017-08-25 06:25] LABS: Albumin/Globulin Ratio 0.5 (1.1-2.2); Bilirubin,Total 0.8 mg/dL (0.2-1.2); Calcium 7.8 mg/dL (8.6-10.8); Globulin 3.6 g/dL (2.4-3.5); Potassium 3.4 mEq/L (3.5-4.5); Total Protein 5.3 g/dL (6.0-8.3)
[2017-08-25 06:26] LABS: Albumin 1.7 g/dL (3.5-5.0)
[2017-08-25] MEDS: Lactobacillus 1 EACH CAP.SPRINK PO SCH ×2 (07:58→20:17)
[2017-08-25] MEDS: Pantoprazole 40 MG VIAL IVP SCH (07:58)
[2017-08-25] MEDS: Chlorhexidine Rinse 15 ML MOUTHWASH MM SCH (07:58)
[2017-08-25] MEDS ORDERED: Potassium Chloride 40 MEQ/200 ML BAG IVPB PRN ×2 (08:06→09:36)
--- NOTE | 2017-08-25 08:30 | Pulmonology Progress Note ---
<Itz Valenzuela - Last Filed: 08/25/17 16:49> Date of Encounter: 08/25/17 Time of Encounter: 08:27 Assessment and Plan (1) Septic shock Current Visit: Yes Status: Acute Patient was intubated in the ED due to progressively worsening AMS. On admission patient HR 155 RR 19 BP 107/64, BP declined to 87/57 and was then intubated. On admission patient HR 151 BP 85/54. 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 At home, daily straight caths. CT abd/ pelvis - 1.8 cm obstructing calculus at the right ureteropelvic junction, CT head - unremarkable, CXR - stable. RIJ placed on 08/22/17, clinically appears non-infected. urology placed stent on 08/22/17. Patient has occassional tachy runs that last for a few seconds that have been responsive to dilt. AMS most likely due to obstructive polynephritis vs bacteremia vs decubitis ulcer infection complication. - serology positive for eneterobacteriac, e.coli, and proteus. venupunctures positive for gram negative rods. on chart review, patient's previous proteus is kramer sensitive, and e.coli was resistent to fluoroquinolones - Abx: Day 3 of Zosyn - MAP goal 65 - Diltiazem for HR >100. - currently awake. - closely monitor I/O. nephro following - decubitis ulcer stage 4 tunneled, wound care consulted - will transfer to [facility] today (2) Obstructive pyelonephritis Current Visit: Yes Status: Acute CT abd/pelvis - 1.8 cm x 0.7 cm x 0.5 cm obstructing calculus at the right ureteropelvic junction, resulting in mild right hydronephrosis. urology placed stents 08/22/17 - urology following. Will surgical remove stone once stable - closely follow I/O - continue abx (3) Bacteremia Current Visit: Yes Status: Acute Patient serology came back positive for enterobacter, e. coli, and proteus. Venupuncture positive for Gram negative rods. Patient has had multiple recurrent episodes of proteus and e. coli hospitalizations. proteus has been kramer sensitive, and e.coli has been resistent to fluoroquinolones. per chart review. 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 Patients habitus is a contributing factor (6) Obesity Current Visit: Yes Status: Acute outpatient followup Qualifiers: Qualified Code(s): E66.9 - Obesity, unspecified (7) Chronic constipation Current Visit: Yes Status: Acute Patient has 1 bowel movement a week and last at home was on tuesday. on imaging , patient appears to have significant compaction in colon. - manual decompression performed yesterday (8) DVT prophylaxis Current Visit: Yes Status: Acute subq heparin Subjective Principal diagnosis: Septic Shock Interval history: Ms Swan is a 71 year old female day 3 admit 2/2 septic shock source most likely from obstructive pyelonephritis. No acute events over night. patient is comfortable. Objective PUL Vital signs: Last Vital Signs Temp 98.7 F 08/25/17 07:57 Pulse 87 08/25/17 08:00 Resp 21 08/25/17 08:00 BP 138/72 08/25/17 08:00 Pulse Ox 97 08/25/17 08:00 General appearance: no acute distress, alert Eyes: nonicteric Effort: normal Auscultation: bilateral: wheezes (diffuse expiratory wheezes) Cardiovascular: regular rate and rhythm Gastrointestinal: hypoactive bowel sounds, non-tender, non-distended Integumentary: normal Extremities: no cyanosis, pulses normal, edema (warm to touch today, and pulses were palpatable in posterior tibial, and dorsalis pedis bilaterally) normal mental status, pupils equal and round, other (patient is recently coming off of sedation, and is slightly confused/difficult to understand) mood appropriate, affect normal Results - Laboratory Findings CBC and BMP: 08/25/17 04:00 08/25/17 13:20 ABG ABG pH 7.38 pH Units (7.32-7.45) 08/23/17 09:51 ABG pCO2 30 mmHg (35-45) L 08/23/17 09:51 ABG pO2 90 mmHg (85-104) 08/23/17 09:51 ABG O2 Saturation 97 % (95-98) 08/23/17 09:51 PT/INR, D-dimer PT 16.5 Seconds (9.4-12.1) H 08/22/17 11:50 Abnormal lab findings: Abnormal lab results RBC 3.28 M/mcL (3.82-4.97) L 08/25/17 04:00 Hgb 9.8 g/dL (11.5-15.4) L 08/25/17 04:00 Hct 29.7 % (35.3-44.9) L 08/25/17 04:00 RDW 15.6 % (11.5-14.5) H 08/25/17 04:00 Plt Count 76 K/mcL (140-400) L 08/25/17 04:00 Band Neutrophils % 18.0 % (0-4) H 08/24/17 04:15 Lymphocytes # 0.5 K/mcL (0.6-4.6) L 08/25/17 04:00 Platelet Estimate Decreased (Normal) L 08/24/17 04:15 PT 16.5 Seconds (9.4-12.1) H 08/22/17 11:50 ABG pCO2 30 mmHg (35-45) L 08/23/17 09:51 ABG HCO3 18 mEq/L (21-27) L 08/23/17 09:51 ABG Total CO2 19 mEq/L (20-26) L 08/23/17 09:51 ABG Base Excess -6 mEq/L (-2 to 3) L 08/23/17 09:51 Sodium 146 mEq/L (136-145) H 08/25/17 04:45 Potassium 3.4 mEq/L (3.5-4.5) L 08/25/17 04:45 Chloride 120 mEq/L (98-109) H 08/25/17 04:45 BUN 42 mg/dL (7-20) H 08/25/17 04:45 Creatinine 1.39 mg/dL (0.57-1.11) H 08/25/17 04:45 Est GFR ( Amer) 45 (> 60) L 08/25/17 04:45 Est GFR (Non-Af Amer) 37 (> 60) L 08/25/17 04:45 BUN/Creatinine Ratio 30 (6-26) H 08/25/17 04:45 Glucose 112 mg/dL (70-99) H 08/25/17 04:45 POC Glucose 102 (58-89) H 08/25/17 06:16 Calculated Osmolality 313 (280-300) H 08/25/17 04:45 Calcium 7.8 mg/dL (8.6-10.8) L 08/25/17 04:45 Direct Bilirubin 1.3 mg/dL (0.0-0.5) H 08/22/17 11:50 Creatine Kinase 539 Units/L (29-168) H 08/22/17 11:50 Serum Total Protein 5.3 g/dL (6.0-8.3) L 08/25/17 04:45 Albumin 1.7 g/dL (3.5-5.0) L 08/25/17 04:45 Globulin 3.6 g/dL (2.4-3.5) H 08/25/17 04:45 Albumin/Globulin Ratio 0.5 (1.1-2.2) L 08/25/17 04:45 Ur Specimen Adequacy See below A 08/22/17 12:13 Urine Clarity Turbid (Clear) A 08/22/17 12:13 Urine Protein 100 mg/dL (Neg-Trace) H 08/22/17 12:13 Urine Ketones Trace mg/dL (Negative) H 08/22/17 12:13 Urine Blood Large (Negative) H 08/22/17 12:13 Urine Nitrite Positive (Negative) A 08/22/17 12:13 Urine Bilirubin Moderate (Negative) H 08/22/17 12:13 Ur Leukocyte Esterase Large (Negative) H 08/22/17 12:13 Urine Microscopic RBC 30-50 per hpf (0-3) H 08/22/17 12:13 Urine Microscopic WBC TNTC per hpf (0-3) H 08/22/17 12:13 Ur Squamous Epith Cells Many per lpf (None-Few) H 08/22/17 12:13 Urine Bacteria Many per hpf (None-Few) H 08/22/17 12:13 Ur Culture Indicated? YES (NO) A 08/22/17 12:13 Urine Opiates Screen Positive ng/mL (Gsmqfs=[id number]) H 08/22/17 12:13 Enterobacteriac sp PCR DETECTED (Not Detect) A 08/22/17 11:50 E. coli (PCR) DETECTED (Not Detect) A 08/22/17 11:50 Proteus species (PCR) DETECTED (Not Detect) A 08/22/17 11:50 - Microbiology Findings Microbiology Findings: Microbiology, Last 48 Hours 08/23/17 01:20 Wound Culture - Final Back No growth. - Clinical Findings Intake & Output: Intake & Output 08/24/17 08/25/17 08/25/17 23:59 07:59 15:59 Intake Total 1100 / 1100 1100 / 1100 Output Total 925 / 925 1000 / 1000 Balance 175 / 175 100 / 100 Consult Discharge Plan - Plan Referrals: Nik Mcmillan MD [Primary Care Provider] - <Zeferino Matias - Last Filed: 08/25/17 20:44> Date of Encounter: 08/25/17 Objective PUL Vital signs: Last Vital Signs Temp 98.2 F 08/25/17 18:32 Pulse 93 08/25/17 18:32 Resp 19 08/25/17 18:32 BP 133/70 08/25/17 18:32 Pulse Ox 99 08/25/17 18:32 Results - Laboratory Findings CBC and BMP: 08/25/17 04:00 08/25/17 13:20 ABG ABG pH 7.38 pH Units (7.32-7.45) 08/23/17 09:51 ABG pCO2 30 mmHg (35-45) L 08/23/17 09:51 ABG pO2 90 mmHg (85-104) 08/23/17 09:51 ABG O2 Saturation 97 % (95-98) 08/23/17 09:51 PT/INR, D-dimer PT 16.5 Seconds (9.4-12.1) H 08/22/17 11:50 Abnormal lab findings: Abnormal lab results RBC 3.28 M/mcL (3.82-4.97) L 08/25/17 04:00 Hgb 9.8 g/dL (11.5-15.4) L 08/25/17 04:00 Hct 29.7 % (35.3-44.9) L 08/25/17 04:00 RDW 15.6 % (11.5-14.5) H 08/25/17 04:00 Plt Count 76 K/mcL (140-400) L 08/25/17 04:00 Band Neutrophils % 18.0 % (0-4) H 08/24/17 04:15 Lymphocytes # 0.5 K/mcL (0.6-4.6) L 08/25/17 04:00 Platelet Estimate Decreased (Normal) L 08/24/17 04:15 PT 16.5 Seconds (9.4-12.1) H 08/22/17 11:50 ABG pCO2 30 mmHg (35-45) L 08/23/17 09:51 ABG HCO3 18 mEq/L (21-27) L 08/23/17 09:51 ABG Total CO2 19 mEq/L (20-26) L 08/23/17 09:51 ABG Base Excess -6 mEq/L (-2 to 3) L 08/23/17 09:51 Sodium 146 mEq/L (136-145) H 08/25/17 04:45 Chloride 120 mEq/L (98-109) H 08/25/17 04:45 BUN 42 mg/dL (7-20) H 08/25/17 04:45 Creatinine 1.39 mg/dL (0.57-1.11) H 08/25/17 04:45 Est GFR ( Amer) 45 (> 60) L 08/25/17 04:45 Est GFR (Non-Af Amer) 37 (> 60) L 08/25/17 04:45 BUN/Creatinine Ratio 30 (6-26) H 08/25/17 04:45 Glucose 112 mg/dL (70-99) H 08/25/17 04:45 POC Glucose 121 (58-89) H 08/25/17 11:57 Calculated Osmolality 313 (280-300) H 08/25/17 04:45 Calcium 7.8 mg/dL (8.6-10.8) L 08/25/17 04:45 Direct Bilirubin 1.3 mg/dL (0.0-0.5) H 08/22/17 11:50 Creatine Kinase 539 Units/L (29-168) H 08/22/17 11:50 Serum Total Protein 5.3 g/dL (6.0-8.3) L 08/25/17 04:45 Albumin 1.7 g/dL (3.5-5.0) L 08/25/17 04:45 Globulin 3.6 g/dL (2.4-3.5) H 08/25/17 04:45 Albumin/Globulin Ratio 0.5 (1.1-2.2) L 08/25/17 04:45 Ur Specimen Adequacy See below A 08/22/17 12:13 Urine Clarity Turbid (Clear) A 08/22/17 12:13 Urine Protein 100 mg/dL (Neg-Trace) H 08/22/17 12:13 Urine Ketones Trace mg/dL (Negative) H 08/22/17 12:13 Urine Blood Large (Negative) H 08/22/17 12:13 Urine Nitrite Positive (Negative) A 08/22/17 12:13 Urine Bilirubin Moderate (Negative) H 08/22/17 12:13 Ur Leukocyte Esterase Large (Negative) H 08/22/17 12:13 Urine Microscopic RBC 30-50 per hpf (0-3) H 08/22/17 12:13 Urine Microscopic WBC TNTC per hpf (0-3) H 08/22/17 12:13 Ur Squamous Epith Cells Many per lpf (None-Few) H 08/22/17 12:13 Urine Bacteria Many per hpf (None-Few) H 08/22/17 12:13 Ur Culture Indicated? YES (NO) A 08/22/17 12:13 Urine Opiates Screen Positive ng/mL (Thzhpu=377) H 08/22/17 12:13 Enterobacteriac sp PCR DETECTED (Not Detect) A 08/22/17 11:50 E. coli (PCR) DETECTED (Not Detect) A 08/22/17 11:50 Proteus species (PCR) DETECTED (Not Detect) A 08/22/17 11:50 - Microbiology Findings Microbiology Findings: Microbiology, Last 48 Hours 08/23/17 01:20 Wound Culture - Final Back No growth. - Clinical Findings Intake & Output: Intake & Output 08/25/17 08/25/17 08/25/17 07:59 15:59 23:59 Intake Total 1100 / 1100 1740 / 1740 1000 / 1000 Output Total 1000 / 1000 400 / 400 500 / 500 Balance 100 / 100 1340 / 1340 500 / 500 - Attending Attestation I examined this patient and my medical decision-making was reviewed with the Resident Physician. I agree with the documented findings, disposition and treatment plan as described except to the extent set forth below. Patient seen and examined. Labs, radiology, chart personally reviewed. 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 Johnson catheter to be removed when urologist agree. Endorcine: blood glucose is monitored Lines: all lines checked and no evidence of infections.remove central lines. Skin: skin care to prevent pressure ulcers per nursing routine care patient was transferred to the floor
[2017-08-25] MEDS ORDERED: Naloxone 0.4 MG/ML INJ IVP PRN (09:36)
--- NOTE | 2017-08-25 18:44 | Urology Progress Note ---
Date of Encounter: 08/25/17 Time of Encounter: 18:43 - Assessment and Plan (1) Right ureteral stone Current Visit: Yes Status: Acute Assessment and plan: Status post cystoscopy and right ureteral stent placement. Postoperative day #3. Continue Johnson catheter on the hospital. Upon discharge, she can resume intermittent catheterization. We will arrange for definitive stone treatment as an outpatient. Progress Note Narrative: Postoperative day #3 status post cystoscopy and right ureteral stent placement. She is doing well. Her pain is well-controlled. She was extubated and is now on the general floor. She is tolerating general diet. Catheter is in place with jose-colored urine. Objective Initial Vital Signs Temp Pulse Resp BP Pulse Ox 0 F L 155 19 107/64 93 08/22/17 11:36 08/22/17 11:36 08/22/17 11:36 08/22/17 11:36 08/22/17 11:36 - General physical appearance Present: well developed, well nourished, no distress - Respiratory Present: normal respiratory effort - Abdomen Present: soft - Genitourinary Urine Appearance: Present: Cloudy - Labs 08/25/17 04:00 08/25/17 13:20 Diabetes panel 08/25/17 08/25/17 Range/Units 04:45 13:20 Sodium 146 H (136-145) mEq/L Potassium 3.4 L 3.5 (3.5-4.5) mEq/L Chloride 120 H (98-109) mEq/L Carbon Dioxide 19 (19-29) mEq/L BUN 42 H (7-20) mg/dL Creatinine 1.39 H (0.57-1.11) mg/dL Glucose 112 H (70-99) mg/dL Calcium 7.8 L (8.6-10.8) mg/dL AST 33 (5-34) Units/L ALT 15 (0-55) Units/L Alkaline Phosphatase 82 (38-126) Units/L Albumin 1.7 L (3.5-5.0) g/dL Calcium panel 08/25/17 Range/Units 04:45 Calcium 7.8 L (8.6-10.8) mg/dL Albumin 1.7 L (3.5-5.0) g/dL Pituitary panel 08/25/17 08/25/17 Range/Units 04:45 13:20 Sodium 146 H (136-145) mEq/L Potassium 3.4 L 3.5 (3.5-4.5) mEq/L Chloride 120 H (98-109) mEq/L Carbon Dioxide 19 (19-29) mEq/L BUN 42 H (7-20) mg/dL Creatinine 1.39 H (0.57-1.11) mg/dL Glucose 112 H (70-99) mg/dL Calcium 7.8 L (8.6-10.8) mg/dL Adrenal panel 08/25/17 08/25/17 Range/Units 04:45 13:20 Sodium 146 H (136-145) mEq/L Potassium 3.4 L 3.5 (3.5-4.5) mEq/L Chloride 120 H (98-109) mEq/L Carbon Dioxide 19 (19-29) mEq/L BUN 42 H (7-20) mg/dL Creatinine 1.39 H (0.57-1.11) mg/dL Glucose 112 H (70-99) mg/dL Calcium 7.8 L (8.6-10.8) mg/dL Total Bilirubin 0.8 (0.2-1.2) mg/dL AST 33 (5-34) Units/L ALT 15 (0-55) Units/L Alkaline Phosphatase 82 (38-126) Units/L Albumin 1.7 L (3.5-5.0) g/dL Consult Discharge Plan - Plan Referrals: Nik Mcmillan MD [Primary Care Provider] -
[2017-08-26] MEDS ORDERED: Ipratropium/Albuterol Neb 3 ML IH PRN (00:25)
[2017-08-26] MEDS ORDERED: Ipratropium/Albuterol Neb 3 ML ONE (00:32)
[2017-08-26] MEDS: Piperacillin/Tazobactam 3.375 GM in D5% in Water (Mini-Bag+) 100 ML IVPB SCH ×4 (00:39→16:30)
[2017-08-26 05:43] LABS: Basophils % 0.3 %; Hematocrit 30.7 % (35.3-44.9); Mean Corpuscular Volume 91.1 fL (83.0-100.0); Red Blood Count 3.37 M/mcL (3.82-4.97)
[2017-08-26 05:44] LABS: Eosinophils # 0.1 K/mcL (0.0-0.6); Eosinophils % 1.1 %; Hemoglobin 10.1 g/dL (11.5-15.4); Immature Granulocytes % 1.7 % (0-4); Immature Platelets 8.5 % (1.1-6.1); Mean Corpuscular HGB Conc 32.9 g/dL (31.6-35.5); Mean Platelet Volume 12.1 fL (9.4-12.4); Monocytes # 0.6 K/mcL (0.0-1.3); Monocytes % 9.1 %; Red Cell Distribution Width 15.7 % (11.5-14.5); Segmented Neutrophils % 72.8 %
[2017-08-26] MEDS: 0.9 % Sodium Chloride 1,000 ML IVC SCH ×3 (05:50→18:51)
[2017-08-26 06:19] LABS: Neutrophils # 4.7 K/mcL (1.6-8.9); Platelet Count 91 K/mcL (140-400)
[2017-08-26 06:20] LABS: Large Platelets Present (Not Present); Platelet Estimate Decreased (Normal)
[2017-08-26 06:21] LABS: Reactive Lymphocytes Present (Not Present); Toxic Granulation Present (Not Present)
[2017-08-26 06:46] LABS: Albumin/Globulin Ratio 0.5 (1.1-2.2); Bilirubin,Total 0.8 mg/dL (0.2-1.2); Globulin 3.7 g/dL (2.4-3.5); Total Protein 5.5 g/dL (6.0-8.3)
[2017-08-26 06:49] LABS: Albumin 1.8 g/dL (3.5-5.0)
[2017-08-26 06:50] LABS: Potassium 3.6 mEq/L (3.5-4.5)
--- NOTE | 2017-08-26 07:28 | Urology Progress Note ---
Date of Encounter: 08/26/17 Time of Encounter: 07:28 - Assessment and Plan (1) Right ureteral stone Current Visit: Yes Status: Acute Assessment and plan: Right ureteral stent placed. She is doing well. Infection is improving. We will perform definitive ureteroscopic stone extraction once discharged from the hospital. Progress Note Narrative: She had some tachycardia last night. No fevers or chills. Urine has been draining clear. Objective Initial Vital Signs Temp Pulse Resp BP Pulse Ox 0 F L 155 19 107/64 93 08/22/17 11:36 08/22/17 11:36 08/22/17 11:36 08/22/17 11:36 08/22/17 11:36 - General physical appearance Present: well developed, well nourished, no distress - Respiratory Present: normal respiratory effort - Abdomen Present: soft - Labs 08/26/17 04:55 08/26/17 04:55 Diabetes panel 08/25/17 08/26/17 Range/Units 13:20 04:55 Sodium 148 H (136-145) mEq/L Potassium 3.5 3.6 (3.5-4.5) mEq/L Chloride 123 H (98-109) mEq/L Carbon Dioxide 14 L (19-29) mEq/L BUN 32 H D (7-20) mg/dL Creatinine 1.26 H (0.57-1.11) mg/dL Glucose 139 H (70-99) mg/dL Calcium 8.0 L (8.6-10.8) mg/dL AST 45 H (5-34) Units/L ALT 16 (0-55) Units/L Alkaline Phosphatase 108 (38-126) Units/L Albumin 1.8 L (3.5-5.0) g/dL Calcium panel 08/26/17 Range/Units 04:55 Calcium 8.0 L (8.6-10.8) mg/dL Albumin 1.8 L (3.5-5.0) g/dL Pituitary panel 08/25/17 08/26/17 Range/Units 13:20 04:55 Sodium 148 H (136-145) mEq/L Potassium 3.5 3.6 (3.5-4.5) mEq/L Chloride 123 H (98-109) mEq/L Carbon Dioxide 14 L (19-29) mEq/L BUN 32 H D (7-20) mg/dL Creatinine 1.26 H (0.57-1.11) mg/dL Glucose 139 H (70-99) mg/dL Calcium 8.0 L (8.6-10.8) mg/dL Adrenal panel 08/25/17 08/26/17 Range/Units 13:20 04:55 Sodium 148 H (136-145) mEq/L Potassium 3.5 3.6 (3.5-4.5) mEq/L Chloride 123 H (98-109) mEq/L Carbon Dioxide 14 L (19-29) mEq/L BUN 32 H D (7-20) mg/dL Creatinine 1.26 H (0.57-1.11) mg/dL Glucose 139 H (70-99) mg/dL Calcium 8.0 L (8.6-10.8) mg/dL Total Bilirubin 0.8 (0.2-1.2) mg/dL AST 45 H (5-34) Units/L ALT 16 (0-55) Units/L Alkaline Phosphatase 108 (38-126) Units/L Albumin 1.8 L (3.5-5.0) g/dL Consult Discharge Plan - Plan Referrals: Nik Mcmillan MD [Primary Care Provider] -
[2017-08-26] MEDS ORDERED: Pantoprazole 40 MG VIAL IVP SCH (09:00)
[2017-08-26] MEDS: Lactobacillus 1 EACH CAP.SPRINK PO SCH ×2 (09:18→21:09)
[2017-08-26] MEDS: Ondansetron 4 MG/2 ML VIAL IVP PRN ×2 (14:28→21:10)
--- NOTE | 2017-08-26 16:33 | Internal Med Progress Note ---
Date of Encounter: 08/26/17 Time of Encounter: 16:00 - Assessment and plan (1) Septic shock Current Visit: Yes Status: Acute Assessment and plan: likely from obstructive pyelonephritis. Continue Zosyn. Repeat cultures were obtained today. Follow up with results. Covering for Enterobacter, E coli, and Proteus. Based on sensitivities; discharge antibiotics ideally would be Amoxicillin with Levaquin. For now continue to monitor; throughout the day she became diaphoretic and nauseated. (2) Obstructive pyelonephritis Current Visit: Yes Status: Acute Assessment and plan: Planned for outpatient procedures by Urology once stable. (3) Restrictive lung disease Current Visit: Yes Status: Acute (4) Right ureteral stone Current Visit: Yes Status: Acute (5) Chronic constipation Current Visit: Yes Status: Acute - Subjective Interval history: Patient complained of nausea and fatigue. Zofran helped but persisted. Patient and told nursing that PO phenergan is hurting her stomach. It was held and patient is now resumed on IV Protonix. - Constitutional Vitals: Temp Pulse Resp BP Pulse Ox 98.5 F 85 18 155/75 98 08/26/17 15:53 08/26/17 15:53 08/26/17 15:53 08/26/17 15:53 08/26/17 15:53 - Head Head exam: Present: atraumatic, normocephalic - Respiratory Respiratory exam: Present: CTAB. Absent: accessory muscle use, rales, rhonchi, wheezes - Cardiovascular Cardiovascular exam: Present: RRR, +S1, +S2. Absent: diastolic murmur, gallop, rubs, systolic murmur - GI/Abdominal GI/Abdominal exam: Present: normal bowel sounds, soft, no peritoneal signs. Absent: distended, tenderness Internal Medicine: Result - Labs CBC & Chem 7: 08/26/17 04:55 08/26/17 04:55 Labs: Short CBC 08/26/17 Range/Units 04:55 WBC 6.4 (4.3-11.1) K/mcL Hgb 10.1 L (11.5-15.4) g/dL Hct 30.7 L (35.3-44.9) % Plt Count 91 L (140-400) K/mcL Neutrophils # 4.7 (1.6-8.9) K/mcL BMP 08/26/17 04:55 Sodium 148 H Potassium 3.6 Chloride 123 H Carbon Dioxide 14 L BUN 32 H D Creatinine 1.26 H Glucose 139 H Calcium 8.0 L Liver Function 08/26/17 Range/Units 04:55 Total Bilirubin 0.8 (0.2-1.2) mg/dL AST 45 H (5-34) Units/L ALT 16 (0-55) Units/L Alkaline Phosphatase 108 (38-126) Units/L Albumin 1.8 L (3.5-5.0) g/dL - ABG Interpretation ABG results: ABG ABG pH 7.38 pH Units (7.32-7.45) 08/23/17 09:51 ABG pCO2 30 mmHg (35-45) L 08/23/17 09:51 ABG pO2 90 mmHg (85-104) 08/23/17 09:51 ABG O2 Saturation 97 % (95-98) 08/23/17 09:51 PT/INR, D-dimer PT 16.5 Seconds (9.4-12.1) H 08/22/17 11:50 - Impressions Impressions Chest X-Ray 08/26/17 00:23 IMPRESSION: Pulmonary vascular congestion and mild cardiomegaly, similar to prior. D/ / 08/26/2017 16:05:57 Amanda Pedro MD / [email or web address] Interpreting Provider: Amanda Pedro MD Consult Discharge Plan - Plan Referrals: Nik Mcmillan MD [Primary Care Provider] -
[2017-08-26] MEDS: Pantoprazole 40 MG VIAL IVP SCH (18:39)
--- NOTE | 2017-08-26 19:10 | Electrocardiograph Report ---
[address] [place], [place] [address] Test Date: 2017-08-26 Pat Name: Judith Swan Department: 112 Room: 2A48 Gender: Retail Shift Manager: LEE ANN : 1945 Requested By: Hiral Velarde Order Number: [id number] Reading MD: Lauren Dimas Measurements Intervals Lula Rate: 126 P: 114 PA: 147 QRS: 23 QRSD: 102 T: 31 QT: 329 QTc: 404 Interpretive Statements SINUS TACHYCARDIA LOW QRS VOLTAGE IN PRECORDIAL LEADS ABNORMAL RHYTHM ECG Electronically Signed On 08-26-2017 19:08:43 EDT by Lauren Dimas
[2017-08-26] MEDS: *HR* Morphine 2 MG/ML SYRINGE IVP PRN (21:09)
[2017-08-27] MEDS: 0.9 % Sodium Chloride 1,000 ML IVC SCH ×2 (00:59→12:26)
[2017-08-27] MEDS: Piperacillin/Tazobactam 3.375 GM in D5% in Water (Mini-Bag+) 100 ML IVPB SCH ×4 (00:59→23:37)
[2017-08-27] MEDS ORDERED: Bismuth Subsalicylate 120 ML ORAL SUSPENSION PO ONE (05:26)
[2017-08-27 06:51] LABS: Hematocrit 32.7 % (35.3-44.9); Hemoglobin 10.5 g/dL (11.5-15.4); Mean Corpuscular HGB Conc 32.1 g/dL (31.6-35.5); Mean Corpuscular Hemoglobin 29.5 pg (28.0-33.3); Mean Corpuscular Volume 91.9 fL (83.0-100.0); Mean Platelet Volume 11.8 fL (9.4-12.4); Platelet Count 110 K/mcL (140-400); Red Blood Count 3.56 M/mcL (3.82-4.97); Red Cell Distribution Width 15.5 % (11.5-14.5)
[2017-08-27 07:00] LABS: Albumin/Globulin Ratio 0.5 (1.1-2.2); Bilirubin,Total 0.8 mg/dL (0.2-1.2); Globulin 3.7 g/dL (2.4-3.5); Potassium 2.8 mEq/L (3.5-4.5); Total Protein 5.6 g/dL (6.0-8.3)
[2017-08-27 07:04] LABS: Albumin 1.9 g/dL (3.5-5.0)
[2017-08-27 07:56] LABS: Eosinophils # 0.5 K/mcL (0.0-0.6); Lymphocytes # 1.7 K/mcL (0.6-4.6); Monocytes # 0.7 K/mcL (0.0-1.3); Neutrophils # 6.7 K/mcL (1.6-8.9)
[2017-08-27 07:57] LABS: Platelet Estimate Slight Decrease (Normal)
[2017-08-27] MEDS: Lactobacillus 1 EACH CAP.SPRINK PO SCH ×2 (09:02→22:06)
[2017-08-27 09:39] LABS: Phosphorous 3.3 mg/dL (2.3-4.7)
--- NOTE | 2017-08-27 11:46 | Urology Progress Note ---
Date of Encounter: 08/27/17 Time of Encounter: 11:45 - Assessment and Plan (1) Right ureteral stone Current Visit: Yes Status: Acute Assessment and plan: Status post right ureteral stent placement. We will arrange for definitive ureteroscopic stone extraction as an outpatient. Urology will sign off today. Please call with any questions. Progress Note Narrative: status post right ureteral stent placement. No acute urologic issues Objective Initial Vital Signs Temp Pulse Resp BP Pulse Ox 0 F L 155 19 107/64 93 08/22/17 11:36 08/22/17 11:36 08/22/17 11:36 08/22/17 11:36 08/22/17 11:36 - General physical appearance Present: well developed, well nourished, no distress - Respiratory Present: normal respiratory effort - Abdomen Present: soft - Genitourinary Urine Appearance: Present: Clear - Labs 08/27/17 06:07 08/27/17 06:07 Diabetes panel 08/27/17 Range/Units 06:07 Sodium 146 H (136-145) mEq/L Potassium 2.8 L (3.5-4.5) mEq/L Chloride 118 H (98-109) mEq/L Carbon Dioxide 22 (19-29) mEq/L BUN 24 H (7-20) mg/dL Creatinine 1.11 (0.57-1.11) mg/dL Glucose 123 H (70-99) mg/dL Calcium 8.0 L (8.6-10.8) mg/dL AST 39 H (5-34) Units/L ALT 16 (0-55) Units/L Alkaline Phosphatase 97 (38-126) Units/L Albumin 1.9 L (3.5-5.0) g/dL Calcium panel 08/27/17 Range/Units 06:07 Calcium 8.0 L (8.6-10.8) mg/dL Phosphorus 3.3 (2.3-4.7) mg/dL Albumin 1.9 L (3.5-5.0) g/dL Pituitary panel 08/27/17 Range/Units 06:07 Sodium 146 H (136-145) mEq/L Potassium 2.8 L (3.5-4.5) mEq/L Chloride 118 H (98-109) mEq/L Carbon Dioxide 22 (19-29) mEq/L BUN 24 H (7-20) mg/dL Creatinine 1.11 (0.57-1.11) mg/dL Glucose 123 H (70-99) mg/dL Calcium 8.0 L (8.6-10.8) mg/dL Adrenal panel 08/27/17 Range/Units 06:07 Sodium 146 H (136-145) mEq/L Potassium 2.8 L (3.5-4.5) mEq/L Chloride 118 H (98-109) mEq/L Carbon Dioxide 22 (19-29) mEq/L BUN 24 H (7-20) mg/dL Creatinine 1.11 (0.57-1.11) mg/dL Glucose 123 H (70-99) mg/dL Calcium 8.0 L (8.6-10.8) mg/dL Total Bilirubin 0.8 (0.2-1.2) mg/dL AST 39 H (5-34) Units/L ALT 16 (0-55) Units/L Alkaline Phosphatase 97 (38-126) Units/L Albumin 1.9 L (3.5-5.0) g/dL Consult Discharge Plan - Plan Referrals: Nik Mcmillan MD [Primary Care Provider] -
[2017-08-27] MEDS: Ondansetron 4 MG/2 ML VIAL IVP PRN (14:44)
[2017-08-27] MEDS: Pantoprazole 40 MG VIAL IVP SCH (17:41)
--- NOTE | 2017-08-27 19:01 | Internal Med Progress Note ---
Date of Encounter: 08/27/17 Time of Encounter: 19:00 - Assessment and plan (1) Septic shock Status: Resolved Assessment and plan: likely from obstructive pyelonephritis. Continue Zosyn. Repeat cultures were obtained today. Follow up with results. Covering for Enterobacter, E coli, and Proteus. Based on sensitivities; discharge antibiotics ideally would be Amoxicillin with Levaquin. For now continue to monitor; throughout the day she became diaphoretic and nauseated. (2) Obstructive pyelonephritis Status: Acute Assessment and plan: Planned for outpatient procedures by Urology once stable. (3) Restrictive lung disease Status: Chronic (4) Right ureteral stone Status: Chronic (5) Chronic constipation Status: Chronic - Subjective Interval history: Patient is now resumed on IV Protonix, tolerated breakfast well. - Constitutional Vitals: Temp Pulse Resp BP Pulse Ox 98.2 F 85 17 154/97 94 08/27/17 15:56 08/27/17 15:56 08/27/17 15:56 08/27/17 15:56 08/27/17 16:25 Exam: - Head Head exam: Present: atraumatic, normocephalic - Respiratory Respiratory exam: Present: CTAB. Absent: accessory muscle use, rales, rhonchi, wheezes - Cardiovascular Cardiovascular exam: Present: RRR, +S1, +S2. Absent: diastolic murmur, gallop, rubs, systolic murmur - GI/Abdominal GI/Abdominal exam: Present: normal bowel sounds, soft, no peritoneal signs. Absent: distended, tenderness Internal Medicine: Result - Labs CBC & Chem 7: 08/28/17 06:35 08/28/17 06:35 Labs: Short CBC 08/27/17 Range/Units 06:07 WBC 9.6 (4.3-11.1) K/mcL Hgb 10.5 L (11.5-15.4) g/dL Hct 32.7 L (35.3-44.9) % Plt Count 110 L (140-400) K/mcL Neutrophils # 6.7 (1.6-8.9) K/mcL BMP 08/27/17 06:07 Sodium 146 H Potassium 2.8 L Chloride 118 H Carbon Dioxide 22 BUN 24 H Creatinine 1.11 Glucose 123 H Calcium 8.0 L Liver Function 08/27/17 Range/Units 06:07 Total Bilirubin 0.8 (0.2-1.2) mg/dL AST 39 H (5-34) Units/L ALT 16 (0-55) Units/L Alkaline Phosphatase 97 (38-126) Units/L Albumin 1.9 L (3.5-5.0) g/dL - ABG Interpretation ABG results: ABG ABG pH 7.38 pH Units (7.32-7.45) 08/23/17 09:51 ABG pCO2 30 mmHg (35-45) L 08/23/17 09:51 ABG pO2 90 mmHg (85-104) 08/23/17 09:51 ABG O2 Saturation 97 % (95-98) 08/23/17 09:51 PT/INR, D-dimer PT 16.5 Seconds (9.4-12.1) H 08/22/17 11:50 - Impressions Impressions Chest X-Ray 08/26/17 00:23 IMPRESSION: Pulmonary vascular congestion and mild cardiomegaly, similar to prior. D/ / 08/26/2017 16:05:57 Amanda Pedro MD / [email or web address] Interpreting Provider: Amanda Pedro MD Consult Discharge Plan - Plan Instructions: Urinary Tract Infection in Women (DC), Sepsis (DC) Referrals: Dilan Simons MD [Partnered Physician] - (Please Make follow up appointment.) Nik Mcmillan MD [Primary Care Provider] - (Web request sent on 08/28/17. Please make follow up appointment. ) Prescriptions: Amoxicillin 875 mg PO BID #20 tablet Levofloxacin [Levaquin] 750 mg PO DAILY #10 tablet
[2017-08-27] MEDS: *HR* Morphine 2 MG/ML SYRINGE IVP PRN (23:31)
[2017-08-28] MEDS: Ondansetron 4 MG/2 ML VIAL IVP PRN (04:53)
[2017-08-28 07:19] LABS: Basophils % 0.4 %; Eosinophils # 0.3 K/mcL (0.0-0.6); Eosinophils % 2.8 %; Hematocrit 31.2 % (35.3-44.9); Hemoglobin 10.1 g/dL (11.5-15.4); Immature Granulocytes % 5.3 % (0-4); Lymphocytes # 2.1 K/mcL (0.6-4.6); Lymphocytes % 18.7 %; Mean Corpuscular HGB Conc 32.4 g/dL (31.6-35.5); Mean Corpuscular Hemoglobin 29.8 pg (28.0-33.3); Mean Platelet Volume 11.6 fL (9.4-12.4); Monocytes % 4.9 %; Platelet Count 157 K/mcL (140-400); Red Blood Count 3.39 M/mcL (3.82-4.97); Red Cell Distribution Width 15.4 % (11.5-14.5); Segmented Neutrophils % 67.9 %
[2017-08-28 07:41] LABS: Monocytes # 0.5 K/mcL (0.0-1.3); Neutrophils # 7.5 K/mcL (1.6-8.9)
[2017-08-28 07:48] LABS: Albumin/Globulin Ratio 0.5 (1.1-2.2); Bilirubin,Total 0.6 mg/dL (0.2-1.2); Calcium 8.1 mg/dL (8.6-10.8); Globulin 3.9 g/dL (2.4-3.5); Potassium 3.5 mEq/L (3.5-4.5); Total Protein 5.9 g/dL (6.0-8.3)
--- NOTE | 2017-08-28 08:44 | Discharge Summary ---
Date of Encounter: 08/28/17 Time of Encounter: 08:42 - Discharge Diagnosis (1) Septic shock Priority: Primary Status: Resolved (2) Obstructive pyelonephritis Priority: Secondary Status: Acute (3) Restrictive lung disease Priority: Secondary Status: Chronic (4) Right ureteral stone Priority: Secondary Status: Chronic (5) Chronic constipation Priority: Secondary Status: Chronic (6) Decubitus ulcer of back, stage 4 Priority: Secondary Status: Chronic - Discharge Medications Prescriptions: Amoxicillin 875 mg PO BID #20 tablet Levofloxacin [Levaquin] 750 mg PO DAILY #10 tablet Home Medications: Amitriptyline [Elavil] 25 mg PO HS 08/22/17 [History] Aspirin [Lo-Dose Aspirin EC] 81 mg PO DAILY 08/22/17 [History] Baclofen [Lioresal] 10 mg PO TID 08/22/17 [History] FLUoxetine HCl [Prozac] 10 mg PO DAILY 08/22/17 [History] Gabapentin [Neurontin] 600 mg PO TID 08/22/17 [History] Levothyroxine Sodium [Levoxyl] 88 mcg PO DAILY 08/22/17 [History] Oxycodone HCl/Acetaminophen [Percocet 10-325 mg Tablet] 1 tab PO QID 08/22/17 [ History] Simvastatin [Zocor] 40 mg PO HS 08/22/17 [History] Amoxicillin 875 mg PO BID #20 tablet 08/28/17 [Rx] Levofloxacin [Levaquin] 750 mg PO DAILY #10 tablet 08/28/17 [Rx] Allergies/Adverse Reactions: 3 Allergy/AdvReac Type Severity Reaction Status Date / Time Sulfa (Sulfonamide Allergy See Verified 08/22/17 11:47 Antibiotics) Comments codeine AdvReac Nausea Verified 08/25/17 20:23 Procedures/tests Complete & Pending: Procedures Performed prior 72 hours Category Date Time Status ECG 12 lead ECG [ECG] Routine Y 08/26/17 04:00 Completed Date of admission: 08/22/17 14:27 Primary care physician: Nik Mcmillan MD Consults: 08/22/17 14:47 Consult to Urology [CONS] Stat Consulting Provider: Urology Viviana Reason for Consult: obstructing stone Call Completed: Yes 08/22/17 17:16 Consult to Wound Care [CONS] Routine Reason for Consult: lumbar tunneled decubitis ulcer Call Completed: Yes 08/23/17 11:24 Consult to Ruffler [CONS] Routine Reason for SW Consult: follow up care upon discharge. Discharging clinician: Asif Velarde - Patient Status Disposition: Home, Self-Care Condition: Critical Functional capacity at discharge: bed bound Overall status at discharge: patient is progressing back to baseline - Discharge Instructions Instructions: Urinary Tract Infection in Women (DC), Sepsis (DC) Follow Up With: Dilan Simons MD [Partnered Physician] - (Please Make follow up appointment.) Nik Mcmillan MD [Primary Care Provider] - (Web request sent on 08/28/17. Please make follow up appointment. ) Forms: ED Satisfaction Letter - Diet and Activity Activity: increase activity as tolerated Diet: advance to your usual diet Interval History: 71-year-old female presents from home for evaluation of altered mentation. is with her after initial presentation by EMS. 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 She does have an ulcer on her backside which was not assessed. Vital signs on presentation showed borderline hypotension and tachycardia. There was concern for intracranial pathology as well as sepsis. CT imaging were ordered. She was started on vancomycin and Rocephin secondary to remote history of possible meningitis. Symptoms are unknown etiology at that time except the patient does catheterize daily and may be showing signs of altered mentation secondary to urinary tract infection. Initial blood gas was completed showing hypoxia. Patient required intubation. Patient found to grossly have infected urine. She says elevated CPK and kidney dysfunction at this time. Chest x-ray is unremarkable CT of head is unremarkable. Consultation placed to the sagger maker. An CT of abdomen /pelvis also done and showed her to have a large obstructing stone at the right UVJ. This was likely an obstructed infected stone at this time based on the symptoms and history. A consultation with urologist was made secondary to the stone. Hospital course: She was transferred to ICU. Continued antibiotics. On 08/22 patient underwent cystoscopy with ureteral stent placement. Urine culture came back positive for enterobacter, e coli, and proteus. Blood cultures were positive for gram negative rods. On chart review, patient's previous proteus is kramer sensitive, and e.coli was resistent to fluoroquinolones. Patient was successfuly extubated. Vancomycin and ceftriaxone were discontinued. She was started on Zosyn. She has known decubitis stage for ulcer and wound care was consulted. Urology plans for definitive surgical removal of UPJ stone as outpatient once stable and discharged. She was discharged home on amoxicillin and Levaquin for 10 days. - Time Spent with Patient Total time spent providing and/or coordinating discharge services: - Constitutional Vitals: Temp Pulse Resp BP Pulse Ox 97.8 F 82 17 163/76 95 08/28/17 06:40 08/28/17 06:40 08/28/17 06:40 08/28/17 06:40 08/28/17 06:40 Exam: - Head Head exam: Present: atraumatic, normocephalic - Respiratory Respiratory exam: Present: CTAB. Absent: accessory muscle use, rales, rhonchi, wheezes - Cardiovascular Cardiovascular exam: Present: RRR, +S1, +S2. Absent: diastolic murmur, gallop, rubs, systolic murmur - GI/Abdominal GI/Abdominal exam: Present: normal bowel sounds, soft, no peritoneal signs. Absent: distended, tenderness
[2017-08-28] MEDS: Lactobacillus 1 EACH CAP.SPRINK PO SCH (09:01)
[2017-08-28] MEDS: Piperacillin/Tazobactam 3.375 GM in D5% in Water (Mini-Bag+) 100 ML IVPB SCH (09:02)
[2017-08-28 12:07] VITALS: BP 166/78
== END 2017-08-28 13:03 | disposition home or self-care (01) | DRG 871 ==
LOC: EMEROO 11:34 → ICNU 14:27 → 2ANU 08-25 15:07
PROVIDERS: ADMIT Internal Medicine Pulmonary Disease; ATTEND Student in an Organized Health Care Education/Training Program

== ENCOUNTER 2019-09-20 10:14 | Inpatient (IN) ==
[2019-09-20] MEDS ORDERED: 0.9 % Sodium Chloride 500 ML IVC ONE (11:55)
[2019-09-20 12:07] LABS: Hematocrit 20.6 % (35.3-44.9); Hemoglobin 6.6 g/dL (11.5-15.4); Mean Corpuscular Hemoglobin 29.3 pg (28.0-33.3); Mean Corpuscular Volume 91.6 fL (83.0-100.0); Mean Platelet Volume 10.7 fL (9.4-12.4); Platelet Count 191 K/mcL (140-400); Red Blood Count 2.25 M/mcL (3.82-4.97); Red Cell Distribution Width 22.2 % (11.5-14.5); White Blood Count 4.5 K/mcL (4.3-11.1)
[2019-09-20 12:24] LABS: BUN/Creatinine Ratio 36 (6-26); Blood Urea Nitrogen 26 mg/dL (8-23); Calcium 8.4 mg/dL (8.6-10.3); Carbon Dioxide 23 mEq/L (23-29); Chloride 104 mEq/L (98-107); Glucose 115 mg/dL (70-105); Osmolality,Calculated 288 (280-300); Potassium 3.7 mEq/L (3.5-5.1); Sodium 136 mEq/L (136-145); eGFR For African Americans > 60 (> 60); eGFR For Non-African Americans > 60 (> 60)
[2019-09-20] MEDS ORDERED: Pantoprazole 40 MG VIAL IVP ONE (13:06)
[2019-09-20] MEDS ORDERED: Piperacillin/Tazobactam 3.375 GM in 0.9 % Sodium Chloride Mini Bag 100 ML IVPB ONE (13:11)
[2019-09-20] MEDS ORDERED: Naloxone 0.4 MG/ML INJ IVP PRN (14:06)
[2019-09-20] MEDS ORDERED: 0.9 % Sodium Chloride 250 ML ONE ×2 (14:33→17:57)
[2019-09-20 14:39] LABS: % Iron Saturation 16 % (15-50); Iron 53 mcg/dL (50-170); Transferrin 241 mg/dL (203-362)
[2019-09-20 14:57] LABS: Ferritin 162 ng/mL (10-120)
[2019-09-20] MEDS ORDERED: Gabapentin 300 MG CAPSULE PO SCH (15:00)
[2019-09-20] MEDS: *HR* OxyCODONE/APAP 10/325 TABLET PO SCH ×2 (16:22→20:03)
[2019-09-20] MEDS: Gabapentin 300 MG CAPSULE PO SCH ×3 (16:22→23:47)
[2019-09-20] MEDS ORDERED: SODIUM CHLORIDE/NAHCO3/KCL/PEG 4,000 ML SOLN.RECON PO ONE (17:00)
[2019-09-20] MEDS: cefTRIAXone 2,000 MG in Water for inj. (sterile) 20 ML IVP SCH (17:26)
[2019-09-20] MEDS: 0.9 % Sodium Chloride 1,000 ML IVC SCH (20:07)
[2019-09-20 22:14] LABS: Hematocrit 25.5 % (35.3-44.9)
[2019-09-20 22:15] LABS: Hemoglobin 8.8 g/dL (11.5-15.4)
[2019-09-21] MEDS: Gabapentin 300 MG CAPSULE PO SCH ×5 (03:48→20:11)
[2019-09-21 03:57] LABS: Basophils % 0.8 %; Eosinophils # 0.1 K/mcL (0.0-0.6); Eosinophils % 1.4 %; Hemoglobin 8.7 g/dL (11.5-15.4); Immature Granulocytes % 0.6 % (0-4); Lymphocytes # 0.7 K/mcL (0.6-4.6); Lymphocytes % 13.6 %; Mean Corpuscular HGB Conc 33.5 g/dL (31.6-35.5); Mean Corpuscular Hemoglobin 29.7 pg (28.0-33.3); Mean Corpuscular Volume 88.7 fL (83.0-100.0); Mean Platelet Volume 10.3 fL (9.4-12.4); Monocytes # 0.4 K/mcL (0.0-1.3); Monocytes % 8.7 %; Neutrophils # 3.8 K/mcL (1.6-8.9); Nucleated Red Blood Cells 0.6 /100 WBC (0); Platelet Count 171 K/mcL (140-400); Red Blood Count 2.93 M/mcL (3.82-4.97); Red Cell Distribution Width 20.1 % (11.5-14.5); Segmented Neutrophils % 74.9 %; White Blood Count 5.1 K/mcL (4.3-11.1)
[2019-09-21 04:16] LABS: BUN/Creatinine Ratio 27 (6-26); Blood Urea Nitrogen 23 mg/dL (8-23); Carbon Dioxide 26 mEq/L (23-29); Chloride 104 mEq/L (98-107); Glucose 121 mg/dL (70-105); Osmolality,Calculated 291 (280-300); Potassium 3.7 mEq/L (3.5-5.1); Sodium 138 mEq/L (136-145); eGFR For African Americans > 60 (> 60); eGFR For Non-African Americans > 60 (> 60)
[2019-09-21 04:31] LABS: Anisocytosis 1+ (Not Present); Polychromasia 1+ (Not Present)
[2019-09-21 04:32] LABS: Microcytosis Present (Not Present)
[2019-09-21 04:34] LABS: Reactive Lymphocytes Present (Not Present)
[2019-09-21] MEDS: 0.9 % Sodium Chloride 1,000 ML IVC SCH (05:39)
[2019-09-21] MEDS ORDERED: Lidocaine -MPF 2% 2 ML VIAL ONE (07:23)
[2019-09-21] MEDS ORDERED: Propofol 500 MG/50 ML INFUS..BTL ONE (07:23)
[2019-09-21] MEDS: *HR* OxyCODONE/APAP 10/325 TABLET PO SCH ×4 (08:23→20:10)
[2019-09-21] MEDS: cefTRIAXone 2,000 MG in Water for inj. (sterile) 20 ML IVP SCH (08:25)
[2019-09-21 13:13] LABS: Hematocrit 25.4 % (35.3-44.9); Hemoglobin 8.4 g/dL (11.5-15.4)
[2019-09-22] MEDS: Gabapentin 300 MG CAPSULE PO SCH ×7 (00:02→23:35)
[2019-09-22 07:41] LABS: Basophils % 0.9 %; Eosinophils # 0.2 K/mcL (0.0-0.6); Eosinophils % 6.7 %; Hematocrit 25.1 % (35.3-44.9); Hemoglobin 8.2 g/dL (11.5-15.4); Immature Granulocytes % 0.3 % (0-4); Lymphocytes # 1.1 K/mcL (0.6-4.6); Lymphocytes % 32.6 %; Mean Corpuscular HGB Conc 32.7 g/dL (31.6-35.5); Mean Corpuscular Volume 91.9 fL (83.0-100.0); Mean Platelet Volume 10.6 fL (9.4-12.4); Monocytes # 0.3 K/mcL (0.0-1.3); Monocytes % 9.1 %; Neutrophils # 1.7 K/mcL (1.6-8.9); Platelet Count 150 K/mcL (140-400); Red Blood Count 2.73 M/mcL (3.82-4.97); Red Cell Distribution Width 22.5 % (11.5-14.5); Segmented Neutrophils % 50.4 %; White Blood Count 3.3 K/mcL (4.3-11.1)
[2019-09-22 08:00] LABS: BUN/Creatinine Ratio 30 (6-26); Blood Urea Nitrogen 18 mg/dL (8-23); Calcium 8.1 mg/dL (8.6-10.3); Carbon Dioxide 25 mEq/L (23-29); Chloride 105 mEq/L (98-107); Glucose 97 mg/dL (70-105); Osmolality,Calculated 288 (280-300); Potassium 4.1 mEq/L (3.5-5.1); Sodium 138 mEq/L (136-145); eGFR For African Americans > 60 (> 60); eGFR For Non-African Americans > 60 (> 60)
[2019-09-22] MEDS: cefTRIAXone 2,000 MG in Water for inj. (sterile) 20 ML IVP SCH (08:02)
[2019-09-22] MEDS: *HR* OxyCODONE/APAP 10/325 TABLET PO SCH ×4 (08:03→19:58)
[2019-09-22] MEDS ORDERED: Propofol 500 MG/50 ML INFUS..BTL ONE (11:24)
[2019-09-22] MEDS ORDERED: Lidocaine -MPF 2% 2 ML VIAL ONE (11:24)
[2019-09-22] MEDS ORDERED: *HR* PHENYLEPHRINE 1,000 MCG/10 ML SYRINGE IVP ONE (14:30)
[2019-09-22] MEDS ORDERED: EPHEDrine 50 MG/ML VIAL ONE (14:35)
[2019-09-22] MEDS: Ondansetron 4 MG/2 ML VIAL IVP PRN (16:31)
[2019-09-22] MEDS: *HR* Promethazine 25 MG/ML VIAL IVP PRN (19:58)
[2019-09-23] MEDS: Gabapentin 300 MG CAPSULE PO SCH ×6 (03:04→23:05)
[2019-09-23] MEDS ORDERED: Acetaminophen IV 1,000 MG/100 ML INFUS..BTL IVPB ONE (03:49)
[2019-09-23] MEDS: *HR* OxyCODONE/APAP 10/325 TABLET PO SCH ×4 (07:41→20:27)
[2019-09-23] MEDS: cefTRIAXone 2,000 MG in Water for inj. (sterile) 20 ML IVP SCH (07:42)
[2019-09-23] MEDS: 0.9 % Sodium Chloride 1,000 ML IVC SCH (12:51)
[2019-09-23 12:57] LABS: Basophils % 0.5 %; Eosinophils # 0.1 K/mcL (0.0-0.6); Eosinophils % 2.8 %; Hematocrit 27.1 % (35.3-44.9); Hemoglobin 8.4 g/dL (11.5-15.4); Immature Granulocytes % 0.3 % (0-4); Lymphocytes # 0.5 K/mcL (0.6-4.6); Lymphocytes % 13.8 %; Mean Corpuscular Hemoglobin 29.8 pg (28.0-33.3); Mean Corpuscular Volume 96.1 fL (83.0-100.0); Mean Platelet Volume 10.3 fL (9.4-12.4); Monocytes # 0.3 K/mcL (0.0-1.3); Monocytes % 8.7 %; Neutrophils # 2.9 K/mcL (1.6-8.9); Platelet Count 137 K/mcL (140-400); Red Blood Count 2.82 M/mcL (3.82-4.97); Red Cell Distribution Width 22.8 % (11.5-14.5); Segmented Neutrophils % 73.9 %; White Blood Count 3.9 K/mcL (4.3-11.1)
[2019-09-23] MEDS: *HR* Promethazine 25 MG/ML VIAL IVP PRN (20:22)
[2019-09-24] MEDS: Gabapentin 300 MG CAPSULE PO SCH ×7 (03:20→23:57)
[2019-09-24] MEDS: cefTRIAXone 2,000 MG in Water for inj. (sterile) 20 ML IVP SCH (08:11)
[2019-09-24] MEDS: *HR* OxyCODONE/APAP 10/325 TABLET PO SCH ×4 (08:11→21:08)
[2019-09-24 08:40] LABS: Hematocrit 27.4 % (35.3-44.9); Hemoglobin 8.5 g/dL (11.5-15.4); Lymphocytes # 0.9 K/mcL (0.6-4.6); Mean Corpuscular Hemoglobin 30.2 pg (28.0-33.3); Mean Corpuscular Volume 97.5 fL (83.0-100.0); Mean Platelet Volume 10.1 fL (9.4-12.4); Monocytes # 0.2 K/mcL (0.0-1.3); Platelet Count 150 K/mcL (140-400); Red Blood Count 2.81 M/mcL (3.82-4.97); Red Cell Distribution Width 23.5 % (11.5-14.5); White Blood Count 2.4 K/mcL (4.3-11.1)
[2019-09-24 09:02] LABS: Neutrophils # 1.3 K/mcL (1.6-8.9)
[2019-09-24 09:03] LABS: Anisocytosis 1+ (Not Present); Platelet Estimate Normal (Normal); Reactive Lymphocytes Present (Not Present)
[2019-09-24 09:04] LABS: Microcytosis Present (Not Present)
[2019-09-24 10:27] LABS: BUN/Creatinine Ratio 14 (6-26); Blood Urea Nitrogen 8 mg/dL (8-23); Calcium 8.2 mg/dL (8.6-10.3); Carbon Dioxide 25 mEq/L (23-29); Chloride 108 mEq/L (98-107); Glucose 98 mg/dL (70-105); Osmolality,Calculated 288 (280-300); Potassium 4.4 mEq/L (3.5-5.1); Sodium 140 mEq/L (136-145); eGFR For African Americans > 60 (> 60); eGFR For Non-African Americans > 60 (> 60)
[2019-09-24] MEDS: 0.9 % Sodium Chloride 1,000 ML IVC SCH (13:51)
[2019-09-25] MEDS: Gabapentin 300 MG CAPSULE PO SCH ×5 (04:01→20:32)
[2019-09-25 04:56] LABS: Basophils % 1.1 %; Eosinophils # 0.1 K/mcL (0.0-0.6); Eosinophils % 3.2 %; Hematocrit 27.2 % (35.3-44.9); Hemoglobin 8.3 g/dL (11.5-15.4); Immature Granulocytes % 0.7 % (0-4); Lymphocytes # 1.2 K/mcL (0.6-4.6); Lymphocytes % 42.1 %; Mean Corpuscular HGB Conc 30.5 g/dL (31.6-35.5); Mean Corpuscular Hemoglobin 29.9 pg (28.0-33.3); Mean Corpuscular Volume 97.8 fL (83.0-100.0); Mean Platelet Volume 10.4 fL (9.4-12.4); Monocytes # 0.3 K/mcL (0.0-1.3); Monocytes % 9.1 %; Neutrophils # 1.3 K/mcL (1.6-8.9); Platelet Count 174 K/mcL (140-400); Red Blood Count 2.78 M/mcL (3.82-4.97); Red Cell Distribution Width 23.6 % (11.5-14.5); Segmented Neutrophils % 43.8 %; White Blood Count 2.9 K/mcL (4.3-11.1)
[2019-09-25] MEDS: *HR* Promethazine 25 MG/ML VIAL IVP PRN ×2 (05:04→20:31)
[2019-09-25 05:17] LABS: BUN/Creatinine Ratio 16 (6-26); Blood Urea Nitrogen 9 mg/dL (8-23); Calcium 8.3 mg/dL (8.6-10.3); Carbon Dioxide 27 mEq/L (23-29); Chloride 108 mEq/L (98-107); Glucose 92 mg/dL (70-105); Osmolality,Calculated 290 (280-300); Sodium 141 mEq/L (136-145); eGFR For African Americans > 60 (> 60); eGFR For Non-African Americans > 60 (> 60)
[2019-09-25 05:29] LABS: Anisocytosis 1+ (Not Present); Microcytosis Present (Not Present); Platelet Estimate Normal (Normal)
[2019-09-25] MEDS: *HR* OxyCODONE/APAP 10/325 TABLET PO SCH ×3 (07:59→15:43)
[2019-09-25] MEDS: cefTRIAXone 2,000 MG in Water for inj. (sterile) 20 ML IVP SCH (08:00)
[2019-09-25] MEDS: 0.9 % Sodium Chloride 1,000 ML IVC SCH ×2 (10:56→12:15)
[2019-09-25] MEDS ORDERED: SODIUM CHLORIDE/NAHCO3/KCL/PEG 4,000 ML SOLN.RECON PO ONE (17:00)
[2019-09-26] MEDS: *HR* OxyCODONE/APAP 10/325 TABLET PO SCH ×5 (00:08→20:48)
[2019-09-26] MEDS: Gabapentin 300 MG CAPSULE PO SCH ×6 (00:09→20:29)
[2019-09-26] MEDS: cefTRIAXone 2,000 MG in Water for inj. (sterile) 20 ML IVP SCH (09:03)
[2019-09-26 09:22] LABS: Basophils % 0.6 %; Eosinophils # 0.1 K/mcL (0.0-0.6); Eosinophils % 1.5 %; Hematocrit 28.1 % (35.3-44.9); Hemoglobin 8.7 g/dL (11.5-15.4); Immature Granulocytes % 0.4 % (0-4); Lymphocytes # 1.1 K/mcL (0.6-4.6); Lymphocytes % 23.4 %; Mean Corpuscular Hemoglobin 30.4 pg (28.0-33.3); Mean Corpuscular Volume 98.3 fL (83.0-100.0); Mean Platelet Volume 10.6 fL (9.4-12.4); Monocytes # 0.3 K/mcL (0.0-1.3); Monocytes % 7.3 %; Neutrophils # 3.1 K/mcL (1.6-8.9); Platelet Count 208 K/mcL (140-400); Red Blood Count 2.86 M/mcL (3.82-4.97); Red Cell Distribution Width 22.7 % (11.5-14.5); Segmented Neutrophils % 66.8 %
[2019-09-26 09:23] LABS: White Blood Count 4.7 K/mcL (4.3-11.1)
[2019-09-26 09:38] LABS: BUN/Creatinine Ratio 15 (6-26); Blood Urea Nitrogen 9 mg/dL (8-23); Calcium 8.3 mg/dL (8.6-10.3); Carbon Dioxide 26 mEq/L (23-29); Chloride 108 mEq/L (98-107); Glucose 105 mg/dL (70-105); Osmolality,Calculated 289 (280-300); Potassium 3.5 mEq/L (3.5-5.1); Sodium 140 mEq/L (136-145); eGFR For African Americans > 60 (> 60); eGFR For Non-African Americans > 60 (> 60)
[2019-09-26] MEDS: 0.9 % Sodium Chloride 1,000 ML IVC SCH (11:44)
[2019-09-27] MEDS: Gabapentin 300 MG CAPSULE PO SCH ×7 (01:18→21:35)
[2019-09-27] MEDS: *HR* OxyCODONE/APAP 10/325 TABLET PO SCH ×4 (10:06→21:36)
[2019-09-27] MEDS: cefTRIAXone 2,000 MG in Water for inj. (sterile) 20 ML IVP SCH (10:07)
[2019-09-27] MEDS: Metoclopramide 10 MG/2 ML VIAL IVP PRN (18:15)
[2019-09-27] MEDS: Ondansetron 4 MG/2 ML VIAL IVP PRN (21:25)
[2019-09-28] MEDS: Gabapentin 300 MG CAPSULE PO SCH ×7 (00:32→23:45)
[2019-09-28] MEDS: 0.9 % Sodium Chloride 1,000 ML IVC SCH (00:32)
[2019-09-28 04:48] LABS: Hematocrit 28.7 % (35.3-44.9); Hemoglobin 8.7 g/dL (11.5-15.4)
[2019-09-28 05:05] LABS: BUN/Creatinine Ratio 22 (6-26); Blood Urea Nitrogen 13 mg/dL (8-23); Calcium 8.1 mg/dL (8.6-10.3); Carbon Dioxide 26 mEq/L (23-29); Chloride 109 mEq/L (98-107); Glucose 93 mg/dL (70-105); Osmolality,Calculated 290 (280-300); Sodium 140 mEq/L (136-145); eGFR For African Americans > 60 (> 60); eGFR For Non-African Americans > 60 (> 60)
[2019-09-28] MEDS: Metoclopramide 10 MG/2 ML VIAL IVP PRN (07:00)
[2019-09-28] MEDS: *HR* OxyCODONE/APAP 10/325 TABLET PO SCH ×4 (09:58→20:40)
[2019-09-28] MEDS: cefTRIAXone 2,000 MG in Water for inj. (sterile) 20 ML IVP SCH (09:59)
[2019-09-29] MEDS: Gabapentin 300 MG CAPSULE PO SCH ×5 (00:01→13:12)
[2019-09-29] MEDS: 0.9 % Sodium Chloride 1,000 ML IVC SCH (00:07)
[2019-09-29] MEDS ORDERED: Propofol 500 MG/50 ML INFUS..BTL ONE (10:54)
[2019-09-29] MEDS ORDERED: Lidocaine -MPF 2% 2 ML VIAL ONE (10:54)
[2019-09-29 10:56] VITALS: BP 115/63
[2019-09-29] MEDS ORDERED: 0.9 % Sodium Chloride 500 ML IVC SCH (11:00)
[2019-09-29] MEDS ORDERED: Simethicone 40 MG/0.6 ML MLS IR ONE (11:31)
[2019-09-29] MEDS: cefTRIAXone 2,000 MG in Water for inj. (sterile) 20 ML IVP SCH (13:07)
[2019-09-29] MEDS: *HR* OxyCODONE/APAP 10/325 TABLET PO SCH ×2 (13:07→13:11)
== END 2019-09-29 14:00 | disposition home or self-care (01) | DRG 811 ==
LOC: 3ANU 10:14 → EMEROOARM 10:14 → SUATTDRO 13:20 → 3ANU 13:59 → SUATTDRO 09-21 13:28
PROVIDERS: ADMIT Student in an Organized Health Care Education/Training Program; ATTEND Internal Medicine

== ENCOUNTER 2020-11-21 16:57 | Inpatient (IN) ==
[2020-11-21] MEDS ORDERED: Cefepime HCl 2,000 MG in 0.9 % Sodium Chloride Mini Bag 100 ML IVPB STA (17:26)
[2020-11-21] MEDS ORDERED: Cefepime HCl 2,000 MG in Water for inj. (sterile) 20 ML IVP STA (17:36)
[2020-11-21 18:02] LABS: Amphetamine Screen,Urine Negative ng/mL (Cutoff=1000); Barbiturate Screen,Urine Negative ng/mL (Cutoff=200); Benzodiazepines Screen,Urine Negative ng/mL (Cutoff=200); Cannabinoid Screen,Urine Negative ng/mL (Cutoff = 50); Cocaine Screen,Urine Negative ng/mL (Cutoff= 300); Opiate Screen,Urine Negative ng/mL (Cutoff=300); Phencyclidine Screen,Urine Negative ng/mL (Cutoff=25)
[2020-11-21 18:06] LABS: Bilirubin,Urine Negative (Negative); Blood,Urine Moderate (Negative); Clarity,Urine Turbid (Clear); Color,Urine Yellow (Yellow); Glucose,Urine (UA) Normal (Normal); Hyaline Casts,Urine Few per lpf (None Seen); Ketones,Urine Trace mg/dL (Negative); Leukocyte Esterase,Urine Large (Negative); Mucus,Urine Many per lpf (None-Few); Nitrite,Urine Negative (Negative); Protein,Urine 70 mg/dL (Neg-Trace); RBC,Urine 30-50 per hpf (0-3); Specific Gravity,Urine 1.025 (1.010-1.025); Squamous Epithelial Cell,Urine Few per hpf (None-Few); WBC,Urine TNTC per hpf (0-3)
[2020-11-21 18:22] LABS: Basophils % 0.4 %; Eosinophils % 0.6 %; Hematocrit 41.7 % (35.3-44.9); Hemoglobin 12.7 g/dL (11.5-15.4); Immature Granulocytes % 0.4 % (0-4); Lymphocytes # 1.5 K/mcL (0.6-4.6); Lymphocytes % 20.6 %; Mean Corpuscular HGB Conc 30.5 g/dL (31.6-35.5); Mean Corpuscular Hemoglobin 26.6 pg (28.0-33.3); Mean Corpuscular Volume 87.4 fL (83.0-100.0); Mean Platelet Volume 10.3 fL (9.4-12.4); Monocytes # 0.5 K/mcL (0.0-1.3); Neutrophils # 5.1 K/mcL (1.6-8.9); Platelet Count 277 K/mcL (140-400); Red Blood Count 4.77 M/mcL (3.82-4.97); Red Cell Distribution Width 15.3 % (11.5-14.5); White Blood Count 7.1 K/mcL (4.3-11.1)
[2020-11-21 18:29] LABS: INR 1.2; Prothrombin Time 13.7 Seconds (9.4-12.1)
[2020-11-21 18:32] LABS: Activated Partial Thrombo Time 33.3 Seconds (26.0-36.0)
[2020-11-21 18:37] LABS: Alanine Aminotransferase 7 Units/L (7-52); Albumin 3.7 g/dL (3.5-5.7); Albumin/Globulin Ratio 0.9 (1.1-2.2); Alkaline Phosphatase 110 Units/L (34-104); Aspartate Amino Transferase 13 Units/L (13-39); BUN/Creatinine Ratio 33 (6-26); Bilirubin,Direct 0.1 mg/dL (0.0-0.2); Bilirubin,Indirect 0.3 mg/dL (0.0-1.0); Bilirubin,Total 0.4 mg/dL (0.3-1.0); Blood Urea Nitrogen 18 mg/dL (8-23); Calcium 8.9 mg/dL (8.6-10.3); Carbon Dioxide 27 mEq/L (23-29); Chloride 104 mEq/L (98-107); Ethanol < 10 mg/dL (Less than 10); Globulin 3.9 g/dL (2.4-3.5); Glucose 117 mg/dL (70-105); Osmolality,Calculated 295 (280-300); Potassium 3.6 mEq/L (3.5-5.1); Sodium 141 mEq/L (136-145); Total Protein 7.6 g/dL (6.4-8.9); Troponin I < 0.03 ng/mL (< 0.04); eGFR For African Americans > 60 (> 60); eGFR For Non-African Americans > 60 (> 60)
[2020-11-21 18:50] LABS: Thyroid Stimulating Hormone 2.982 mcIU/mL (0.340-5.600)
[2020-11-21] MEDS ORDERED: Aspirin 81 MG TAB.CHEW PO STA (19:19)
[2020-11-21 19:26] LABS: Adenovirus Not Detected (Not Detect); Coronavirus 229E Not Detected (Not Detect); Coronavirus HKU1 Not Detected (Not Detect); Coronavirus NL63 Not Detected (Not Detect); Coronavirus OC43 Not Detected (Not Detect); SARS-CoV-2 Not Detected (Not Detect)
[2020-11-21 19:27] LABS: Bordetella Pertussis Not Detected (Not Detect); Chlamydophila pneumoniae Not Detected (Not Detect); Human Metapneumovirus Not Detected (Not Detect); Human Rhinovirus/Enterovirus Not Detected (Not Detect); Influenza A Subtype 2009 H1 Not Detected (Not Detect); Influenza B Not Detected (Not Detect); Mycoplasma pneumoniae Not Detected (Not Detect); Parainfluenza Virus 1 Not Detected (Not Detect); Parainfluenza Virus 2 Not Detected (Not Detect); Parainfluenza Virus 3 Not Detected (Not Detect); Parainfluenza Virus 4 Not Detected (Not Detect); Respiratory Syncytial Virus Not Detected (Not Detect)
[2020-11-21] MEDS ORDERED: Naloxone 0.4 MG/ML INJ IVP PRN ×2 (20:10→20:19)
[2020-11-21] MEDS ORDERED: Acetaminophen 325 MG TABLET PO PRN (20:10)
[2020-11-21] MEDS ORDERED: Ondansetron ODT 4 MG TAB.RAPDIS SL PRN (20:10)
[2020-11-21] MEDS: 0.9 % Sodium Chloride 1,000 ML IVC SCH (21:25)
[2020-11-21] MEDS ORDERED: Dextrose Gel 15 GM/37.5 ML TUBE PO PRN ×2 (22:22)
[2020-11-21] MEDS ORDERED: D5% in Water 1,000 ML IVC PRN (22:22)
[2020-11-21] MEDS ORDERED: *HR* Dextrose 50 % in Water (Vial) 50 ML VIAL IVP PRN (22:22)
[2020-11-22] MEDS: Cefepime HCl 2,000 MG in Water for inj. (sterile) 20 ML IVP SCH ×2 (05:28→17:17)
[2020-11-22] MEDS: *HR* Heparin 5,000 UNIT/ML VIAL SQ SCH ×3 (05:28→22:22)
[2020-11-22 06:14] LABS: Basophils % 0.3 %; Eosinophils % 0.3 %; Hematocrit 38.1 % (35.3-44.9); Hemoglobin 11.9 g/dL (11.5-15.4); Immature Granulocytes % 0.1 % (0-4); Lymphocytes # 1.4 K/mcL (0.6-4.6); Lymphocytes % 20.2 %; Mean Corpuscular HGB Conc 31.2 g/dL (31.6-35.5); Mean Corpuscular Hemoglobin 27.5 pg (28.0-33.3); Mean Corpuscular Volume 88.2 fL (83.0-100.0); Mean Platelet Volume 10.8 fL (9.4-12.4); Monocytes # 0.5 K/mcL (0.0-1.3); Monocytes % 6.9 %; Platelet Count 240 K/mcL (140-400); Red Blood Count 4.32 M/mcL (3.82-4.97); Red Cell Distribution Width 15.4 % (11.5-14.5); Segmented Neutrophils % 72.2 %; White Blood Count 6.9 K/mcL (4.3-11.1)
[2020-11-22 06:48] LABS: BUN/Creatinine Ratio 45 (6-26); Blood Urea Nitrogen 19 mg/dL (8-23); Calcium 8.7 mg/dL (8.6-10.3); Carbon Dioxide 20 mEq/L (23-29); Chloride 108 mEq/L (98-107); Glucose 92 mg/dL (70-105); Magnesium 2.1 mg/dL (1.6-2.6); Osmolality,Calculated 292 (280-300); Potassium 3.5 mEq/L (3.5-5.1); Sodium 140 mEq/L (136-145); Thyroid Stimulating Hormone 1.802 mcIU/mL (0.340-5.600); eGFR For African Americans > 60 (> 60); eGFR For Non-African Americans > 60 (> 60)
[2020-11-22] MEDS: Insulin LISPRO 300 UNITS/3 ML VIAL SUBQ SCH ×3 (09:50→16:28)
[2020-11-22] MEDS: 0.9 % Sodium Chloride 1,000 ML IVC SCH (18:38)
[2020-11-23] MEDS: Cefepime HCl 2,000 MG in Water for inj. (sterile) 20 ML IVP SCH ×2 (05:24→17:32)
[2020-11-23] MEDS: *HR* Heparin 5,000 UNIT/ML VIAL SQ SCH ×3 (05:25→21:34)
[2020-11-23] MEDS: Insulin LISPRO 300 UNITS/3 ML VIAL SUBQ SCH ×3 (08:02→16:52)
[2020-11-23] MEDS ORDERED: 0.9 % Sodium Chloride 1,000 ML IVC SCH (12:00)
[2020-11-24] MEDS: *HR* Heparin 5,000 UNIT/ML VIAL SQ SCH ×3 (05:32→20:10)
[2020-11-24] MEDS: Cefepime HCl 2,000 MG in Water for inj. (sterile) 20 ML IVP SCH ×2 (05:33→17:10)
[2020-11-24 07:01] LABS: BUN/Creatinine Ratio 38 (6-26); Blood Urea Nitrogen 13 mg/dL (8-23); Calcium 8.5 mg/dL (8.6-10.3); Carbon Dioxide 23 mEq/L (23-29); Chloride 111 mEq/L (98-107); Glucose 112 mg/dL (70-105); Osmolality,Calculated 291 (280-300); Potassium 3.5 mEq/L (3.5-5.1); Sodium 140 mEq/L (136-145); eGFR For African Americans > 60 (> 60); eGFR For Non-African Americans > 60 (> 60)
[2020-11-24] MEDS: Insulin LISPRO 300 UNITS/3 ML VIAL SUBQ SCH ×3 (08:43→16:03)
[2020-11-25] MEDS: Cefepime HCl 2,000 MG in Water for inj. (sterile) 20 ML IVP SCH ×2 (05:16→17:04)
[2020-11-25] MEDS: *HR* Heparin 5,000 UNIT/ML VIAL SQ SCH ×3 (05:16→20:10)
[2020-11-25] MEDS: Insulin LISPRO 300 UNITS/3 ML VIAL SUBQ SCH ×3 (07:31→15:42)
[2020-11-25] MEDS: QUEtiapine Fumarate 25 MG TABLET PO SCH ×2 (20:10→20:33)
[2020-11-26 01:34] LABS: Basophils % 0.5 %; Eosinophils # 0.1 K/mcL (0.0-0.6); Eosinophils % 0.8 %; Hematocrit 36.8 % (35.3-44.9); Hemoglobin 11.4 g/dL (11.5-15.4); Immature Granulocytes % 0.3 % (0-4); Lymphocytes # 1.3 K/mcL (0.6-4.6); Mean Corpuscular Hemoglobin 27.1 pg (28.0-33.3); Mean Corpuscular Volume 87.4 fL (83.0-100.0); Mean Platelet Volume 10.8 fL (9.4-12.4); Monocytes # 0.5 K/mcL (0.0-1.3); Monocytes % 7.4 %; Neutrophils # 4.5 K/mcL (1.6-8.9); Platelet Count 213 K/mcL (140-400); Red Blood Count 4.21 M/mcL (3.82-4.97); Red Cell Distribution Width 15.8 % (11.5-14.5); White Blood Count 6.4 K/mcL (4.3-11.1)
[2020-11-26 01:56] LABS: Alanine Aminotransferase 13 Units/L (7-52); Albumin 3.5 g/dL (3.5-5.7); Albumin/Globulin Ratio 1.1 (1.1-2.2); Alkaline Phosphatase 90 Units/L (34-104); Aspartate Amino Transferase 30 Units/L (13-39); BUN/Creatinine Ratio 34 (6-26); Bilirubin,Total 0.5 mg/dL (0.3-1.0); Blood Urea Nitrogen 16 mg/dL (8-23); Calcium 8.9 mg/dL (8.6-10.3); Carbon Dioxide 25 mEq/L (23-29); Chloride 108 mEq/L (98-107); Globulin 3.3 g/dL (2.4-3.5); Glucose 103 mg/dL (70-105); Osmolality,Calculated 295 (280-300); Potassium 3.2 mEq/L (3.5-5.1); Sodium 142 mEq/L (136-145); Total Protein 6.8 g/dL (6.4-8.9); eGFR For African Americans > 60 (> 60); eGFR For Non-African Americans > 60 (> 60)
[2020-11-26] MEDS: Cefepime HCl 2,000 MG in Water for inj. (sterile) 20 ML IVP SCH ×2 (07:12→17:15)
[2020-11-26] MEDS: *HR* Heparin 5,000 UNIT/ML VIAL SQ SCH ×3 (07:13→23:37)
[2020-11-26] MEDS: Insulin LISPRO 300 UNITS/3 ML VIAL SUBQ SCH ×3 (07:20→16:19)
[2020-11-26] MEDS: QUEtiapine Fumarate 25 MG TABLET PO SCH (23:38)
[2020-11-27] MEDS: Cefepime HCl 2,000 MG in Water for inj. (sterile) 20 ML IVP SCH ×2 (05:38→18:05)
[2020-11-27] MEDS: *HR* Heparin 5,000 UNIT/ML VIAL SQ SCH ×3 (05:38→23:58)
[2020-11-27 06:19] LABS: Hematocrit 36.6 % (35.3-44.9); Hemoglobin 11.2 g/dL (11.5-15.4); Mean Corpuscular HGB Conc 30.6 g/dL (31.6-35.5); Mean Corpuscular Hemoglobin 26.6 pg (28.0-33.3); Mean Corpuscular Volume 86.9 fL (83.0-100.0); Mean Platelet Volume 10.9 fL (9.4-12.4); Platelet Count 204 K/mcL (140-400); Red Blood Count 4.21 M/mcL (3.82-4.97); Red Cell Distribution Width 15.9 % (11.5-14.5)
[2020-11-27 06:38] LABS: BUN/Creatinine Ratio 44 (6-26); Blood Urea Nitrogen 20 mg/dL (8-23); Calcium 9.1 mg/dL (8.6-10.3); Carbon Dioxide 24 mEq/L (23-29); Chloride 108 mEq/L (98-107); Glucose 91 mg/dL (70-105); Osmolality,Calculated 298 (280-300); Potassium 3.4 mEq/L (3.5-5.1); Sodium 143 mEq/L (136-145); eGFR For African Americans > 60 (> 60); eGFR For Non-African Americans > 60 (> 60)
[2020-11-27] MEDS: Insulin LISPRO 300 UNITS/3 ML VIAL SUBQ SCH ×3 (07:47→15:25)
[2020-11-27] MEDS ORDERED: Cyanocobalamin (B-12) 1,000 MCG/ML VIAL IM ONE (07:55)
[2020-11-27] MEDS ORDERED: Potassium Chloride Elixir 20 MEQ/15 ML UDC PO ONE (09:43)
[2020-11-27] MEDS: QUEtiapine Fumarate 25 MG TABLET PO SCH (23:58)
[2020-11-28] MEDS: Cefepime HCl 2,000 MG in Water for inj. (sterile) 20 ML IVP SCH (06:34)
[2020-11-28] MEDS: *HR* Heparin 5,000 UNIT/ML VIAL SQ SCH ×3 (06:34→20:37)
[2020-11-28 07:05] LABS: Hemoglobin 11.7 g/dL (11.5-15.4); Mean Corpuscular HGB Conc 31.6 g/dL (31.6-35.5); Mean Corpuscular Hemoglobin 27.7 pg (28.0-33.3); Mean Corpuscular Volume 87.7 fL (83.0-100.0); Platelet Count 225 K/mcL (140-400); Red Blood Count 4.22 M/mcL (3.82-4.97); White Blood Count 4.8 K/mcL (4.3-11.1)
[2020-11-28] MEDS: Insulin LISPRO 300 UNITS/3 ML VIAL SUBQ SCH ×3 (07:31→17:00)
[2020-11-28] MEDS: Cyanocobalamin (B-12) 1,000 MCG TABLET PO SCH (07:39)
[2020-11-28 18:24] LABS: BUN/Creatinine Ratio 55 (6-26); Blood Urea Nitrogen 28 mg/dL (8-23); Calcium 9.4 mg/dL (8.6-10.3); Carbon Dioxide 29 mEq/L (23-29); Chloride 109 mEq/L (98-107); Glucose 195 mg/dL (70-105); Osmolality,Calculated 313 (280-300); Potassium 3.2 mEq/L (3.5-5.1); Sodium 146 mEq/L (136-145); eGFR For African Americans > 60 (> 60); eGFR For Non-African Americans > 60 (> 60)
[2020-11-28] MEDS: QUEtiapine Fumarate 25 MG TABLET PO SCH (20:37)
[2020-11-29] MEDS: *HR* Heparin 5,000 UNIT/ML VIAL SQ SCH (05:06)
[2020-11-29 06:24] VITALS: BP 125/69
[2020-11-29] MEDS: Insulin LISPRO 300 UNITS/3 ML VIAL SUBQ SCH (08:00)
[2020-11-29] MEDS: Cyanocobalamin (B-12) 1,000 MCG TABLET PO SCH (08:29)
[2020-11-29 09:05] LABS: Hematocrit 39.7 % (35.3-44.9); Hemoglobin 12.1 g/dL (11.5-15.4); Mean Corpuscular HGB Conc 30.5 g/dL (31.6-35.5); Mean Corpuscular Hemoglobin 27.6 pg (28.0-33.3); Mean Corpuscular Volume 90.6 fL (83.0-100.0); Mean Platelet Volume 11.9 fL (9.4-12.4); Platelet Count 226 K/mcL (140-400); Red Blood Count 4.38 M/mcL (3.82-4.97); Red Cell Distribution Width 16.3 % (11.5-14.5); White Blood Count 5.6 K/mcL (4.3-11.1)
[2020-11-29 09:17] LABS: BUN/Creatinine Ratio 63 (6-26); Blood Urea Nitrogen 27 mg/dL (8-23); Calcium 9.4 mg/dL (8.6-10.3); Carbon Dioxide 27 mEq/L (23-29); Chloride 111 mEq/L (98-107); Glucose 113 mg/dL (70-105); Osmolality,Calculated 308 (280-300); Potassium 3.5 mEq/L (3.5-5.1); Sodium 146 mEq/L (136-145); eGFR For African Americans > 60 (> 60); eGFR For Non-African Americans > 60 (> 60)
== END 2020-11-29 10:43 | disposition home health service (06) | DRG 689 ==
LOC: EMEROOARM 16:57 → 3BNU 16:57
PROVIDERS: ADMIT Student in an Organized Health Care Education/Training Program; ATTEND Student in an Organized Health Care Education/Training Program

== ENCOUNTER 2021-01-19 10:51 | Observation (INO) ==
[2021-01-19] MEDS ORDERED: 0.9 % Sodium Chloride 1,000 ML IVC ONE (11:33)
[2021-01-19] MEDS ORDERED: *HR* OxyCODONE/APAP 10/325 TABLET PO STA (11:41)
[2021-01-19 11:56] LABS: Basophils % 0.4 %; Eosinophils # 0.1 K/mcL (0.0-0.6); Eosinophils % 1.6 %; Hematocrit 34.9 % (35.3-44.9); Hemoglobin 10.7 g/dL (11.5-15.4); Immature Granulocytes % 0.4 % (0-4); Lymphocytes % 12.1 %; Mean Corpuscular HGB Conc 30.7 g/dL (31.6-35.5); Mean Corpuscular Hemoglobin 27.5 pg (28.0-33.3); Mean Corpuscular Volume 89.7 fL (83.0-100.0); Mean Platelet Volume 10.4 fL (9.4-12.4); Monocytes # 0.3 K/mcL (0.0-1.3); Neutrophils # 6.7 K/mcL (1.6-8.9); Platelet Count 192 K/mcL (140-400); Red Blood Count 3.89 M/mcL (3.82-4.97); Red Cell Distribution Width 15.8 % (11.5-14.5); Segmented Neutrophils % 81.5 %; White Blood Count 8.2 K/mcL (4.3-11.1)
[2021-01-19 12:10] LABS: Alanine Aminotransferase 7 Units/L (7-52); Albumin 3.3 g/dL (3.5-5.7); Alkaline Phosphatase 90 Units/L (34-104); Aspartate Amino Transferase 14 Units/L (13-39); BUN/Creatinine Ratio 50 (6-26); Bilirubin,Direct 0.1 mg/dL (0.0-0.2); Bilirubin,Indirect 0.1 mg/dL (0.0-1.0); Bilirubin,Total 0.2 mg/dL (0.3-1.0); Blood Urea Nitrogen 26 mg/dL (8-23); Carbon Dioxide 31 mEq/L (23-29); Chloride 102 mEq/L (98-107); Globulin 3.2 g/dL (2.4-3.5); Glucose 116 mg/dL (70-105); Lipase 22 Units/L (11-82); Osmolality,Calculated 288 (280-300); Sodium 136 mEq/L (136-145); Total Protein 6.5 g/dL (6.4-8.9); eGFR For African Americans > 60 (> 60); eGFR For Non-African Americans > 60 (> 60)
[2021-01-19 12:54] LABS: Bacteria,Urine Moderate per hpf (None-Few); Bilirubin,Urine Negative (Negative); Blood,Urine Moderate (Negative); Budding Yeast,Urine Many per hpf (None Seen); Clarity,Urine Turbid (Clear); Color,Urine Yellow (Yellow); Glucose,Urine (UA) Normal (Normal); Ketones,Urine Negative (Negative); Leukocyte Esterase,Urine Large (Negative); Mucus,Urine Few per lpf (None-Few); Nitrite,Urine Positive (Negative); Protein,Urine 30 mg/dL (Neg-Trace); RBC,Urine 30-50 per hpf (0-3); Specific Gravity,Urine 1.017 (1.010-1.025); Squamous Epithelial Cell,Urine Few per hpf (None-Few); Urobilinogen,Urine Normal (Normal); WBC,Urine TNTC per hpf (0-3)
[2021-01-19] MEDS ORDERED: Cefepime HCl 1,000 MG in Water for inj. (sterile) 10 ML IVP ONE (13:25)
[2021-01-19] MEDS ORDERED: *HR* OxyCODONE/APAP 10/325 TABLET PO PRN (14:03)
[2021-01-19] MEDS ORDERED: Naloxone 0.4 MG/ML INJ IVP PRN (14:03)
[2021-01-19] MEDS ORDERED: LACTOSE REDUCED FOOD PO SCH (15:00)
[2021-01-19] MEDS: Gabapentin 300 MG CAPSULE PO SCH ×3 (17:32→23:46)
[2021-01-19] MEDS: *HR* Heparin 5,000 UNIT/ML VIAL SQ SCH (17:32)
[2021-01-19] MEDS: 0.9 % Sodium Chloride 1,000 ML IVC SCH (17:32)
[2021-01-19] MEDS: Cefepime HCl 1,000 MG in Water for inj. (sterile) 10 ML IVP SCH (23:45)
[2021-01-20 02:28] LABS: Basophils % 0.6 %; Eosinophils # 0.1 K/mcL (0.0-0.6); Eosinophils % 2.6 %; Hematocrit 38.2 % (35.3-44.9); Hemoglobin 11.9 g/dL (11.5-15.4); Immature Granulocytes % 0.4 % (0-4); Lymphocytes # 1.1 K/mcL (0.6-4.6); Lymphocytes % 23.8 %; Mean Corpuscular HGB Conc 31.2 g/dL (31.6-35.5); Mean Corpuscular Hemoglobin 27.9 pg (28.0-33.3); Mean Corpuscular Volume 89.7 fL (83.0-100.0); Mean Platelet Volume 10.8 fL (9.4-12.4); Monocytes # 0.3 K/mcL (0.0-1.3); Monocytes % 6.6 %; Neutrophils # 3.1 K/mcL (1.6-8.9); Platelet Count 176 K/mcL (140-400); Red Blood Count 4.26 M/mcL (3.82-4.97); Red Cell Distribution Width 15.9 % (11.5-14.5); White Blood Count 4.7 K/mcL (4.3-11.1)
[2021-01-20 02:45] LABS: % Iron Saturation 8 % (15-50); BUN/Creatinine Ratio 35 (6-26); Blood Urea Nitrogen 18 mg/dL (8-23); Calcium 8.6 mg/dL (8.6-10.3); Carbon Dioxide 25 mEq/L (23-29); Chloride 107 mEq/L (98-107); Glucose 90 mg/dL (70-105); Iron 25 mcg/dL (50-170); Magnesium 2.2 mg/dL (1.6-2.6); Osmolality,Calculated 287 (280-300); Phosphorous 3.3 mg/dL (2.7-4.5); Potassium 4.4 mEq/L (3.5-5.1); Sodium 138 mEq/L (136-145); Transferrin 227 mg/dL (203-362); eGFR For African Americans > 60 (> 60); eGFR For Non-African Americans > 60 (> 60)
[2021-01-20 03:03] LABS: Estimated Average Glucose 105 mg/dl; Ferritin 25 ng/mL (10-120); Hemoglobin A1C 5.3 %
[2021-01-20 03:11] LABS: Folate > 22.3 ng/mL (3.0-16.0); Vitamin B12 470 pg/mL (250-1100)
[2021-01-20] MEDS: *HR* Heparin 5,000 UNIT/ML VIAL SQ SCH (04:27)
[2021-01-20] MEDS: 0.9 % Sodium Chloride 1,000 ML IVC SCH (04:27)
[2021-01-20] MEDS: Gabapentin 300 MG CAPSULE PO SCH ×5 (04:30→19:50)
[2021-01-20] MEDS: Cefepime HCl 1,000 MG in Water for inj. (sterile) 10 ML IVP SCH ×2 (08:34→15:39)
[2021-01-21] MEDS: Gabapentin 300 MG CAPSULE PO SCH ×6 (00:01→20:32)
[2021-01-21] MEDS: Cefepime HCl 1,000 MG in Water for inj. (sterile) 10 ML IVP SCH ×3 (00:02→16:55)
[2021-01-21] MEDS: *HR* Enoxaparin 40 MG/0.4 ML SYRINGE SQ SCH (04:27)
[2021-01-22] MEDS: Cefepime HCl 1,000 MG in Water for inj. (sterile) 10 ML IVP SCH ×2 (00:01→08:05)
[2021-01-22] MEDS: Gabapentin 300 MG CAPSULE PO SCH ×4 (03:22→12:29)
[2021-01-22] MEDS: *HR* Enoxaparin 40 MG/0.4 ML SYRINGE SQ SCH (05:01)
[2021-01-22 06:02] LABS: Hematocrit 35.4 % (35.3-44.9); Hemoglobin 11.2 g/dL (11.5-15.4); Mean Corpuscular HGB Conc 31.6 g/dL (31.6-35.5); Mean Corpuscular Hemoglobin 28.1 pg (28.0-33.3); Mean Corpuscular Volume 88.7 fL (83.0-100.0); Mean Platelet Volume 10.3 fL (9.4-12.4); Platelet Count 232 K/mcL (140-400); Red Blood Count 3.99 M/mcL (3.82-4.97); Red Cell Distribution Width 15.9 % (11.5-14.5); White Blood Count 9.4 K/mcL (4.3-11.1)
[2021-01-22 08:18] LABS: BUN/Creatinine Ratio 26 (6-26); Blood Urea Nitrogen 14 mg/dL (8-23); Calcium 8.3 mg/dL (8.6-10.3); Carbon Dioxide 24 mEq/L (23-29); Chloride 108 mEq/L (98-107); Glucose 102 mg/dL (70-105); Magnesium 2.2 mg/dL (1.6-2.6); Osmolality,Calculated 289 (280-300); Potassium 3.7 mEq/L (3.5-5.1); Sodium 139 mEq/L (136-145); eGFR For African Americans > 60 (> 60); eGFR For Non-African Americans > 60 (> 60)
[2021-01-22 11:01] VITALS: BP 112/74
== END 2021-01-22 14:35 | disposition home health service (06) ==
LOC: EMEROOARM 10:51 → 2ANU 10:51 → SUATTDRO 14:18 → 2ANU 15:01
PROVIDERS: ADMIT Internal Medicine; ATTEND Internal Medicine